=== PATIENT | female | born 1990 | race Caucasian/White ===

== ENCOUNTER 2018-06-06 13:09 | Emergency (ER) | payer BC, SELFPAY ==
[2018-06-06 13:27] VITALS: BP 116/62; PULSE 74; RESP 18; TEMP 37.7; O2SAT 98
--- NOTE | 2018-06-06 14:07 | ED.GENADUL_ITS ---
Discharge Plan Disposition Patient Disposition: HOME Condition: Stable Discharge Details Chief Complaint: Sorethroat Clinical Impression: Pharyngitis Primary Care Provider: Consuelo Abebe ED Provider: Rogelio Valdez Home Meds and New Rx's Prescriptions: Continue [id number] acid [ Multi] 1 EACH tablet 1 ea PO DAILY RF: 0 desonide 15 GM cream 15 gm Topical PRN PRNRF: 0 triamcinolone acetonide 15 GM cream 15 gm Topical PRN PRNRF: 0 clobetasol 15 GM ointment 15 gm Topical PRN PRNRF: 0 Ketoconazole2%cream 2% 1 ea Topical PRN PRNRF: 0 norethindrone (contraceptive) 0.35 MG tablet 1 tab-cap PO DAILY Qty: 90 RF: 4 levothyroxine 100 MCG tablet 50 mcg PO DAILY Qty: 100 RF: 3 Discontinued cetirizine [All Day Allergy (cetirizine)] 10 MG tablet 10 mg PO DAILY PRNRF: 0 docusate sodium [Colace] 100 MG capsule 100 mg PO BID Qty: 60 RF: 3 Discharge Instructions Instructions: Pharyngitis (ED) Additional Instructions: Feel free to return to the emergency department for any new or significant worsening of her symptoms otherwise follow-up with primary care provider as needed for reassessment. You may use breast-feeding safe ficy-ddf-zajamvs cold medication as needed for your symptoms. Stand Alone Forms: Work Release Referrals: Consuelo Abebe, TRIMMING DEPARTMENT BLOCKER [Primary Care Provider] - (As needed for reassessment or if not improving) Discharge Data Discharge Date/Time-TO BE ENTERED AT DEPARTURE: 06/06/18 14:43 Medical Decision Making Patient presenting to the emergency department for chief complaint of sore throat. Patient states that yesterday she started noticing some increasing malaise, sore throat, and nasal congestion. Patient is also presenting with her son who recently received vaccination and has a generalized rash. Patient denies any known fever chills, cough, or other complaints at this time. Physical exam does show some mild tonsillary hypertrophy, erythema, and scant exudates otherwise unremarkable exam. staffing administrator initiated protocol for rapid strep testing. Rapid strep testing is negative so concern for viral etiology. Mother encouraged to take [id number]-[id number] Breast-feeding safe cold medication and follow-up with primary care provider if not improving. After discussion of diagnosis and plan of care patient has no further needs, questions, or concerns and states clear understanding to return to the emergency department for any worsening symptoms. HPI General Mode of arrival: ambulatory . Date/Time Provider Initiated Documentation: 06/06/18 13:32 . Limitations to Documentation: no limitations . Information obtained by: patient and RN notes reviewed . History of Present Illness 27 year old F presents to the emergency department with the chief complaint of sore throat, described as mild, with intensity rated at 2. Quality is described as aching, and is localized to the mouth (Sore throat). Patient started experiencing this day(s) (1) and it has been constant. No relieving factors improve symptom(s), No exacerbating factors reported . Patient notes no other symptoms.. Patient did receive the following treatments prior to arrival, none Related Data Home Medications Medication Instructions Recorded Confirmed [id number] acid 1 ea PO DAILY 10/12/16 01/10/18 [ Multi Tablet] Ketoconazole2%Cream 1 ea TOPICAL PRN PRN 02/03/17 clobetasol 15 gm TOPICAL PRN PRN 02/03/17 01/10/18 desonide 15 gm TOPICAL PRN PRN script 02/03/17 01/10/18 triamcinolone acetonide 15 gm TOPICAL PRN PRN script 02/03/17 01/08/18 norethindrone (contraceptive) 1 tab-cap PO DAILY #90 tab-cap 02/21/18 levothyroxine 50 mcg PO DAILY #100 tab-cap 03/20/18 Previous Rx's Medication Instructions Recorded norethindrone (contraceptive) 1 tab-cap PO DAILY #90 tab-cap 02/21/18 levothyroxine 50 mcg PO DAILY #100 tab-cap 03/20/18 Allergies Allergy/AdvReac Type Severity Reaction Status Date / Time No Known Allergies Allergy Unverified 03/20/18 15:42 General Stated Complaint: Sorethroat MIREYA: 4 Review of Systems Constitutional Denies chills, Denies fever(s) and Reports malaise ENT Reports as per HPI, Denies otalgia, Reports nasal congestion, Reports nasal discharge, Reports sore throat, Denies throat swelling and Denies tongue swelling Cardiovascular Denies chest pain and Denies dyspnea Respiratory Denies cough and Denies dyspnea Integumentary/Breasts Denies rash Allergic/Immunologic Denies throat swelling and Denies tongue swelling PFSH Family History Mother Diabetes Essential hypertension Depression Mental disorder Father Diabetes Essential hypertension CAD (coronary artery disease) Arthritis Depression Hyperlipidemia Mental disorder Myopathy Paternal Uncle Neoplasm Brother Arthritis Social History Smoking/Tobacco Use Status: Never Surgical History section (01/10/18) cardiac surgery for tetrology of fallot (11/10/92) Exam Const General: cooperative, healthy appearing, comfortable, no acute distress and not ill appearing Orientation: alert, awake and oriented x3 Limitations: mental status not altered HENMT Head: normal to inspection Ears: hearing grossly normal bilaterally and TM's normal bilaterally General nose exam: external nose normal Face and sinus: normal facial exam Mouth: oral mucosae normal, lip normal and tongue normal Throat: posterior oropharynx normal, uvula midline and abnormal tonsil bilaterally erythema, exudates and hypertrophy 1+ Neck Neck: normal visual inspection, full ROM, no lymphadenopathy, no meningeal signs , trachea midline and supple Resp Effort & Inspection: normal respiratory effort and able to speak in complete sentences Auscultation: clear to auscultation bilaterally Cardio Rate: regular rate Rhythm: regular rhythm Heart Sounds: S1 normal, S2 normal and murmur systolic Course Vital Signs Temperature 37.7 C H 06/06/18 13:27 Pulse 74 06/06/18 13:27 Respiratory Rate 18 06/06/18 13:27 Blood Pressure 116/62 06/06/18 13:27 Pulse Oximetry 98 06/06/18 13:27 Temperature 37.7 C H 06/06/18 13:27 Temperature Source Temporal Artery Scan 06/06/18 13:27 Pulse 74 06/06/18 13:27 Respiratory Rate 18 06/06/18 13:27 Respiratory Effort 06/06/18 13:29 Blood Pressure 116/62 06/06/18 13:27 Blood Pressure Position Sitting 06/06/18 13:27 Pulse Oximetry 98 06/06/18 13:27 Oxygen Delivery Method Room Air 06/06/18 13:27 Oxygen Flow Rate 0 06/06/18 13:27 Pain Level 2 06/06/18 13:27 Lab/Test Results Lab/Test Results: 06/06/18 14:02 Pharynx Streptococcus Screen (FATOUMATA) - Pending
[2018-06-06 14:41] VITALS: BP 130/80; PULSE 100; RESP 18; TEMP 36.8; O2SAT 99
== END 2018-06-06 14:43 | disposition home or self-care (01) ==
PROVIDERS: Emergency Provider Nurse Practitioner Family; PCP Nurse Practitioner
DX: J02.9 Acute pharyngitis, unspecified (principal)
CPT/HCPCS: 87880; 99282; 87081

== ENCOUNTER 2018-08-22 16:06 | Outpatient (CLI) | payer BC, SELFPAY ==
[2018-08-22 17:17] LABS: TSH (W/Ref FT4) 0.78 uIU/mL (0.358-3.74)
== END 2018-08-22 16:26 ==
PROVIDERS: PCP Nurse Practitioner; Visit Provider Nurse Practitioner
DX: E03.9 Hypothyroidism, unspecified (principal)
CPT/HCPCS: 36415; 84443

== ENCOUNTER 2018-08-29 01:44 | Outpatient (CLI) | payer BC, SELFPAY ==
--- NOTE | 2018-08-29 13:58 | DI.US_ITS ---
SYMPTOM/DIAGNOSIS: LT PELVIC PAIN, R10.2 PELVIC ULTRASOUND: A transabdominal and transvaginal examination was carried out according to the usual protocol. The uterus measures 5.8 cm. in length, 2.1 cm. in height and 3.9 cm. in width with an endometrial stripe thickness of 1.7 mm. A small area of apparent scarring is noted at the c section incision site in the lower uterus. The right ovary measures 2.5 by 1.6 by 2 cm. The left ovary measures 2.4 by 1.4 by 1.3 cm. The kidneys are unremarkable, both measuring 9.3 cm. in length. SUMMARY: Negative pelvic ultrasound.
== END 2018-08-29 02:04 ==
PROVIDERS: PCP Nurse Practitioner; Visit Provider Nurse Practitioner
DX: R10.2 Pelvic and perineal pain (principal)
CPT/HCPCS: 76830; 76856

== ENCOUNTER 2019-08-22 15:40 | Outpatient (CLI) | payer BC, SELFPAY ==
[2019-08-22 18:09] LABS: TSH (W/Ref FT4) 3.14 uIU/mL (0.36-3.74)
== END 2019-08-22 16:00 ==
PROVIDERS: PCP Nurse Practitioner; Visit Provider Nurse Practitioner
DX: E03.9 Hypothyroidism, unspecified (principal)
CPT/HCPCS: 36415; 84443

== ENCOUNTER 2019-11-26 14:52 | Outpatient (CLI) | payer BC, SELFPAY | END 2019-11-26 15:12 | PROVIDERS: PCP Nurse Practitioner; Visit Provider Obstetrics & Gynecology | DX: O20.0 Threatened abortion (principal) | CPT/HCPCS: 36415; 84702 ==

== ENCOUNTER 2019-11-28 12:11 | Outpatient (REF) | payer BC, SELFPAY | END 2019-11-28 12:31 | LOC: LBN 12:11 | PROVIDERS: PCP Nurse Practitioner; Visit Provider Obstetrics & Gynecology | DX: O20.0 Threatened abortion (principal) | CPT/HCPCS: 84702 ==

== ENCOUNTER 2019-12-26 14:45 | Outpatient (REF) | payer BC, SELFPAY ==
[2019-12-26 15:49] LABS: *AMPHETAMINES SCREEN URINE Negative (Negative); *BARBITURATES SCREEN URINE Negative (Negative); *BENZODIAZEPINES SCREEN URINE Negative (Negative); Cannabinoids THC Negative (Negative); Cocaine Screen,Urine Negative (Negative); METHADONE URINE SCREEN Negative (Negative); OPIATES URINE SCREEN Negative (Negative)
[2019-12-26 15:57] LABS: Tricyclic Antidepressants Negative (Negative)
[2019-12-27 14:46] LABS: Chlamydia Result Negative (Negative); GC Result Negative (Negative)
[2020-01-02 07:15] LABS: Buprenorphine Negative; Norbuprenorphine Negative
== END 2019-12-26 15:05 ==
LOC: LBN 14:45
PROVIDERS: PCP Nurse Practitioner; Visit Provider Advanced Practice Midwife
DX: Z34.91 Encounter for supervision of normal pregnancy, unspecified, first trimester (principal); Z11.3 Encounter for screening for infections with a predominantly sexual mode of transmission
CPT/HCPCS: 80307; 87491; 87591; 87086

== ENCOUNTER 2019-12-27 12:02 | Outpatient (REF) | payer BC, SELFPAY ==
[2019-12-27 15:31] LABS: Abs Immature Grans 0.02 k/cumm (0.0-0.09); Absolute Basophil Count 0.01 k/cumm (0.0-0.2); Absolute Lymphocyte Count 1.49 k/cumm (1.2-3.4); Absolute Monocyte Count 0.54 k/cumm (0.11-0.7); Absolute Neutrophil Count 3.89 k/cumm (1.2-6.7); Basophils % 0.2; Eosinophils % 7.8; HCT 39.5 % (36.0-46.0); HGB 13.1 g/dL (12.0-15.5); Immature Grans % 0.3 %; Lymphocytes % 23.1; Mean Corp. HGB Concentration 33.2 g/dL (32.0-36.0); Mean Corpuscular Hemoglobin 28.1 pg (27.0-33.0); Mean Corpuscular Volume 84.8 fL (80-95); Mean Platelet Volume 12.1 fL (8.0-11.0); Monocytes % 8.4; Neutrophils % 60.2; Platelet Count 238 x1000/uL (130-400); RBC 4.66 m/cumm (4.00-5.20); RBC Distribution Width 14.2 % (11.7-14.6); White Blood Cell Count 6.45 k/cumm (4.4-10.8)
[2019-12-27 15:39] LABS: TSH (W/Ref FT4) 1.34 uIU/mL (0.36-3.74)
[2019-12-30 11:10] LABS: Rubella IgG Ab (UVM) Positive (See Note); Varicella IgG Antibody Positive (See Note)
[2019-12-30 11:37] LABS: Hepatitis B Surface Ag Negative (Negative); Hepatitis C Ab w Rflx HCV PCR Negative (Negative)
[2019-12-30 11:38] LABS: HIV-1/2 Ag & Ab Screen Negative (Negative)
[2020-01-01 09:30] LABS: Syphilis Total Ab w/Reflex Nonreactive (Nonreactive)
[2020-01-07 00:47] LABS: Specimen WB Whole Blood
== END 2019-12-27 12:22 ==
LOC: LBN 12:02
PROVIDERS: PCP Nurse Practitioner; Visit Provider Advanced Practice Midwife
DX: Z34.91 Encounter for supervision of normal pregnancy, unspecified, first trimester (principal); Z36.89 Encounter for other specified antenatal screening
CPT/HCPCS: 81329; 86787; 86803; 86850; 86900; 86901; 87340; 87389; 84443; 85025; 86762; 86780

== ENCOUNTER 2020-05-05 03:33 | Outpatient (CLI) | payer BC, SELFPAY ==
[2020-05-05 15:19] LABS: HCT 35.5 % (36.0-46.0); HGB 11.6 g/dL (11.2-15.7); MCH 29.7 pg (27.0-33.0); MCHC 32.7 % (32.0-36.0); MPV 10.9 fL (8.0-11.0); Platelet Count 222 10^3/uL (130-400); RDW 13.1 % (11.7-14.6)
[2020-05-05 15:29] LABS: Glucose,1 Hr (Glucola) 113 mg/dL (80-140)
== END 2020-05-05 03:53 ==
PROVIDERS: PCP Nurse Practitioner; Visit Provider Obstetrics & Gynecology
DX: Z34.93 Encounter for supervision of normal pregnancy, unspecified, third trimester (principal); Z3A.28 28 weeks gestation of pregnancy
CPT/HCPCS: 36415; 82950; 85027

== ENCOUNTER 2020-06-02 01:17 | Outpatient (CLI) | payer BC, SELFPAY ==
--- NOTE | 2020-06-02 08:00 | DI.US_ITS ---
EXAM: US OB IQRA WEIGHT CLINICAL HISTORY: S<D,O26.843 TECHNIQUE: Ultrasound performed using standard protocol. COMPARISON: US US PELVIS TRANSVAGINAL from 08/29/2018 FINDINGS: Ob ultrasound was performed utilizing 3rd trimester protocol. biometry is consistent with gest ational age of 32 weeks 6 days and an EDC of July 22. Estimated weight is 1995 grams which is at the 39th percentile for predicted gestational age. Placenta is fundal and anterior with no placenta previa. Visually there is a normal quantity of amniotic fluid and the IQRA is 13. heart rate 160 BPM, fetus is in cephalic presentation. IMPRESSION: DATA REPOSITORY:
== END 2020-06-02 01:37 ==
PROVIDERS: PCP Nurse Practitioner; Visit Provider Advanced Practice Midwife
DX: O26.843 Uterine size-date discrepancy, third trimester (principal)
CPT/HCPCS: 76816

== ENCOUNTER 2020-07-06 16:05 | Outpatient (CLI) | payer BC, SELFPAY ==
[2020-07-06 17:09] LABS: *AMPHETAMINES SCREEN URINE Negative (Negative); *BARBITURATES SCREEN URINE Negative (Negative); *BENZODIAZEPINES SCREEN URINE Negative (Negative); Cannabinoids THC Negative (Negative); Cocaine Screen,Urine Negative (Negative); METHADONE URINE SCREEN Negative (Negative); OPIATES URINE SCREEN Negative (Negative)
[2020-07-06 17:12] LABS: Tricyclic Antidepressants Negative (Negative)
[2020-07-06 17:18] LABS: TSH (W/Ref FT4) 2.82 uIU/mL (0.36-3.74)
[2020-07-14 14:50] LABS: Buprenorphine Negative
== END 2020-07-06 16:25 ==
PROVIDERS: PCP Nurse Practitioner; Visit Provider Advanced Practice Midwife
DX: Z34.93 Encounter for supervision of normal pregnancy, unspecified, third trimester (principal); Z36.85 Encounter for antenatal screening for Streptococcus B; E03.9 Hypothyroidism, unspecified
CPT/HCPCS: 80307; 84443; 87081

== ENCOUNTER 2020-07-24 09:34 | Inpatient (IN) | payer BC, SELFPAY ==
--- NOTE | 2020-07-24 11:58 | W.PM.OBHPL1 ---
Date of service: 07/24/20 Time of Service: 11:58 Assessment and Plan Assessment and plan (1) Uterine scar from previous delivery: Status: Acute (2) membranes, spontaneous rupture: Status: Acute Assessment and plan: A: , low risk , Prev LT C/S for breech, planning for TOLAC/ Maternal hx repaired TOF; echo done @ [facility] = nml SROM clear confirmed, latent phase labor GBS negative, Rh+, Rubella and Varicella Immune Low risk for SD and PPH P: Admit to BC, CBC, T&S, COVID swab protocol: IVF access, clear liquids,continuous EFM when in active labor Dr. Donaldson notified of pt status, OR/A&P MECHANIC to be notified of admission Per policy: OR for standby when labor becomes active Expectant management at this time (3) 40 weeks gestation of : Status: Acute OB-HPI Labor/Delivery History of Present Illness Reason for Visit: SUSPECTED SROM 0850 Chief Complaint: Suspected Rupture of Membranes , Associated Signs and Symptoms of Suspected ROM: gush of clear fluids at 0850 this morning, contractions beginning around 1030. EMERALD Calculator Estimated Delivery Date Method Current WG Current Estimate 07/24/20 LMP (Certain) 40w 0d Other Estimates 07/24/20 Ultrasound #1 40w 0d History of Present Expected Delivery Route/Plan Desires - CNM FOB/ - Wai Jones BB yes to circ Plans IOL at 41 wks @ [facility] for TOLAC, booked for 08/02/20 GBS neg Specific Issues/Plan 1. Prior section and desires a trial of labor 1a. Consult at MFM at [facility] - Patient is considering transfer for induction of labor at [facility] if no spontaneous labor 1b. Had consent & counseling with 05/05/20 2. Subchorionic hemorrhage with vaginal bleeding in first trimester. (Rh+) 2a. scant brown discharge until 01/17. No bleeding since. 3. H/O tetralogy of fallot w/ repair & will need [facility] anatomy scan and echo referral placed. al 3a. Normal Echo at [facility] 4. [place] drawn 12/26 wants gender identified yet not made known to her. al 4a. [place] result low prob x3 4b. SMA neg al 4c. AFP 03/19/20 declination signed. al Review of Systems All systems reviewed & are unremarkable except as noted in HPI and below Constitutional Constitutional: Reports as per HPI Cardiovascular Cardiovascular: Reports system reviewed and no additional complaints, except as documented Respiratory Respiratory: Reports system reviewed and no additional complaints, except as documented Gastrointestinal Gastrointestinal: Reports system reviewed and no additional complaints, except as documented Genitourinary Genitourinary: Reports system reviewed and no additional complaints, except as documented and Reports as per HPI Musculoskeletal Musculoskeletal: Reports system reviewed and no additional complaints, except as documented Integumentary/Breasts Skin/Breast: Reports system reviewed and no additional complaints, except as documented Neurologic Neurologic: Reports system reviewed and no additional complaints, except as documented [facility] Medical History (Updated 07/24/20 @ 12:08 by Ann Fowler) Encounter for related examination in first trimester Hypothyroidism Ocular migraine x1 Surgical History (Updated 04/21/20 @ 10:46 by Hollie Portillo RN) cardiac surgery for tetrology of fallot (11/10/92) [facility] section (01/10/18) LTCS. Rafi Montes. Breech s/p unsuccessful ECV. Family History Mother Diabetes Type II Essential hypertension Depression Mental disorder Depression Father Diabetes Essential hypertension CAD (coronary artery disease) Arthritis Depression Hyperlipidemia Mental disorder Depression Myopathy Paternal Uncle Neoplasm Lung Brother Arthritis Social History (Updated 12/26/19 @ 13:10 by Mishel Lr CNM) Smoking/Tobacco Use Status: Never Smoking risk assessment performed?: Yes Alcohol Intake: current Alcohol Intake frequency: holidays/special occasions only Drug use: Never Number of Children: 1 current occupation: [employer] Do you feel safe at home: Yes Do you feel safe in your relationship?: Yes Female Reproductive History Menstrual Age of Menarche: 13 control method: none History History 3 Para 1 Hx # Term Pregnancies 1 Multiple births 0 Hx # Pregnancies 0 Ectopic pregnancies 0 AB induced 0 Hx Number of Living Children 1 AB spontaneous 1 Past Pregnancies Del. Date GA/Weeks # Outcome Route Wgt Sex Labor Lgth Anesthesia Location Prov Complic 01/10/18 39 No Successful 7 lb 3 oz Male [facility] donaldson Delivery Date: 01/10/18 failed ecv for breech. LEMISHEL ARROYO Meds Home Medications and Allergies Home Medications Medication Instructions Recorded Confirmed Type Ketoconazole2%Cream 1 ea TOPICAL PRN PRN 02/03/17 07/23/20 History clobetasol 15 gm TOPICAL PRN PRN 02/03/17 07/23/20 History desonide 15 gm TOPICAL PRN PRN script 02/03/17 07/23/20 History prenat.vits,shayna,[id number]-[id number] 1 tab PO DAILY 11/28/19 07/23/20 History docusate sodium 100 mg capsule 100 mg PO DAILY PRN 03/19/20 07/23/20 History calcium carbonate 500 mg calcium 1,000 mg PO DAILY PRN tab 06/02/20 07/23/20 History (1,250 mg) chewable tablet famotidine 20 mg tablet 20 mg PO DAILY PRN 06/02/20 07/23/20 History triamcinolone acetonide 0.1 % 1 applic TP BID PRN 06/02/20 07/23/20 History topical ointment levothyroxine 100 mcg tablet 50 mcg PO DAILY #100 tab-cap 06/25/20 07/23/20 Rx Allergies Allergy/AdvReac Type Severity Reaction Status Date / Time No Known Allergies Allergy Verified 07/23/20 14:24 Exam Physical Exam Vital Signs Reviewed: Yes Constitutional Constitutional: no acute distress Detailed Labor and Delivery Exam Dilation: 2 Effacement (%): 90 station: -1 Cervix position: mid Consistency: medium DELEON Score(Cervical Ripeness Score): 8 Amniotic Membrane Status: Ruptured Rupture Method: Spontaneous Amniotic Fluid: Clear Pooling: Positive Nitrazine: Positive Ferning: Present Monitor Mode: External Contraction Intensity: Mild Fetus A Heart Rate Baseline: 135 Monitor Accelerations: 15 X 15 Monitor Decelerations: None Variability: Moderate (6-25 BPM) Presentation: Vertex Categories: Category I Est. Weight: 7 lb 0.877 oz Est. Weight: 3200 gms Date of Membrane Rupture: 07/24/20 Time of Membrane Rupture: 12:23 HEENT Exam HEENT Exam: Normal Neck Exam Neck Exam: Normal Chest/Brest/Axilla Exam Chest Exam: Normal Breast Exam Breast Exam: Normal Respiratory Exam Respiratory Exam: Normal Cardiovascular Exam Cardiovascular Exam: Normal Abdominal Exam Abdominal Exam: Normal (Gravid, soft) Rectal Exam Rectal Exam: Not Done Exam Exam: Normal Extremities Exam Extremities Exam: Normal Back/Spine/Pelvis Exam Back Exam: Normal Skin Exam Skin Exam: Normal Neurological Exam Neurological Exam: Normal Psychiatric Exam Psychiatric Exam: Normal Results Results Group Beta Strep: Negative Blood Type: A+ Rubella Status: Immune Varicella Immunity: Immune Risk Assessment Risk for Shoulder Dystocia Historical/Initial OB: NEGATIVE FOR: Pelvic Abnormality, Pre- BMI>30, Previous Shoulder Dystocia or Previous Macrosomia 40 Weeks: NEGATIVE FOR: EFW> 4500 gms, Maternal Weight Gain >40lb or Post Dates Increased Risk?: No Delivery Plan @ 36wks: spont labor, Risk for Pre-Eclampsia Daily Dose ASA Indicated: No Date Initiated/Initials: 12/26/19 al Yes, if one or more: NEGATIVE FOR: Hx Pre-E/Gest HTN, Chronic HTN, Multiple Gestation, Pre-gestational DM, Renal Disease, Systemic Lupus or APA Syndrome Yes, if 2 or more: NEGATIVE FOR: Nulliparity, Age>= 35 yrs, >10yr btwn pregnancies, BMI>30, ethinicty, Mother/Sister w/ Pre-E or Previous IUGR Risk for Post- Hemorrhage Initial: POSITIVE FOR: Anticoagulation; NEGATIVE FOR: Multiple Gestation, Previous PPH, Known Clotting Deficiency or Grand Multiparity At Risk?: No Risks Reviewed Risks Reviewed Upon Admission: Yes
[2020-07-24 12:06] VITALS: BP 122/70; PULSE 75; RESP 16; TEMP 36.9
[2020-07-24 12:18] VITALS: TEMP 36.9
[2020-07-24 12:23] LABS: HCT 36.8 % (36.0-46.0); HGB 12.2 g/dL (11.2-15.7); MCH 29.7 pg (27.0-33.0); MCHC 33.2 % (32.0-36.0); MCV 89.5 fL (80-95); MPV 12.1 fL (8.0-11.0); Platelet Count 183 10^3/uL (130-400); RBC 4.11 10^6/uL (3.93-5.22); RDW 12.8 % (11.7-14.6); RDW-SD 41.9 fL; WBC 8.67 10^3/uL (4.4-10.8)
[2020-07-24] MEDS: Normal Saline Flush 10 ML SYR IVP (13:15)
--- NOTE | 2020-07-24 14:48 | DSE_ITS ---
Date of service: 07/24/20 Time of Service: 14:48 DS: Diagnosis Discharge Diagnosis (1) Uterine scar from previous delivery: Status: Acute (2) membranes, spontaneous rupture: Status: Acute (3) 40 weeks gestation of : Status: Acute (4) H/O tetralogy of Fallot repair: Status: Chronic Discharge Plan Disposition Patient Disposition: [facility] Condition: Good Discharge Details Reason For Visit: SUSPECTED SROM 0850 Admit Date/Time: 07/24/20 11:57 Admit Provider: Ann Fowler Attending Provider: Ann Fowler Primary Care Provider: Consuelo Abebe [facility] Hospital Course Hospital Course: Patient is a 29-year-old female with an estimated date of delivery of 07/24/2020 who has been followed by the M service at [facility] since early in her first trimester. Patient has planned a vaginal after delivery and underwent spontaneous rupture membranes at approximately 830 this morning. She is currently 2 cm dilated with occasional contractions. And clear amniotic fluid and category 1 heart rate tracing. She has a history of a repaired tetralogy of Fallot and had received counseling for a trial of labor at [facility] department. A echocardiogram was normal. Patient's most recent cardiac evaluation was in 2018 and she was given permission to deliver at [facility]. Reviewed the patient's past medical history with the anesthesia team providing care today who reviewed the patient's chart and felt that in the event of a unforeseen cardiac event they would not be able to provide adequate care for the patient because of the resources available [place] [facility] For this reason I reached out to [facility] service and they have agreed to accept the patient in transfer since since she is currently stable and I believe safe to travel. The patient has been advised regarding the recommendations from the anesthesia providers and has excepted transfer. Home Meds and New Rx's Prescriptions: No Action prenat.vits,shayna,[id number]-qlfrc Tablet 1 tab PO DAILY RF: 0 docusate sodium [Colace] 100 mg capsule 100 mg PO DAILY PRNRF: 0 calcium carbonate 500 mg calcium (1,250 mg) tablet,chewable 1,000 mg PO DAILY PRNRF: 0 famotidine 20 mg tablet 20 mg PO DAILY PRNRF: 0 desonide 15 GM cream 15 gm Topical PRN PRNRF: 0 clobetasol 15 GM ointment 15 gm Topical PRN PRNRF: 0 Ketoconazole2%cream 2% 1 ea Topical PRN PRNRF: 0 triamcinolone acetonide 0.1 % ointment 1 applic TP BID PRNRF: 0 levothyroxine 100 mcg tablet 50 mcg PO DAILY Qty: 100 RF: 0 Discharge Instructions Additional Instructions: You will be transported to [facility] by an ambulance and will be cared for by the maternal- medicine service at [facility]. The plan is to have you continue your trial of labor and have a ultimately successful . Activity:: Activity as Tolerated Diet:: As Tolerated Discharge Orders Discharge Orders: Discharge Order (Routine); Ordered 07/24/20 Ordered By: Gogo Donaldson DS: Summary Status at Discharge Functional status at discharge: independent ambulation Overall status at discharge: patient is back to baseline Mental Status: mental status grossly normal Speech and Movement: speech and movement normal Mood: congruent mood Affect: normal affect Exam Const General: no acute distress (Tearful about having to leave [facility] for delivery at [facility]) Nutritional Appearance: average body habitus Orientation: alert, awake and oriented x3 Neck Neck: normal visual inspection Thyroid: thyroid normal Resp Effort & Inspection: normal respiratory effort Auscultation: clear to auscultation bilaterally Cardio Rate: regular rate Rhythm: regular rhythm GI Inspection: normal to inspection Palpation: soft (Gravid) General: deferred (SVE was performed at the time of admission. ) Skin General skin exam: no rashes or lesions noted Extrem General: normal to inspection Psych Appearance: grossly normal Mental Status: mental status grossly normal Speech and Movement: speech and movement normal Mood: congruent mood Affect: normal affect DS: Data Vitals/I&O Vitals and I&O: Vital Signs Temperature 98.4 F 07/24/20 12:18 Pulse 75 07/24/20 12:06 Pulse Rhythm Regular 07/24/20 12:18 Respiratory Rate 16 07/24/20 12:06 Blood Pressure 122/70 07/24/20 12:06 Blood Pressure Mean 87 07/24/20 12:06 Oxygen Delivery Method Room Air 07/24/20 12:18 Oxygen Flow Rate 0 07/24/20 12:18 Data Completed and Pending Labs on day of discharge: Labs from last 24 hours 07/24/20 07/24/20 07/24/20 12:47 12:11 12:11 WBC 8.67 RBC 4.11 Hgb 12.2 Hct 36.8 MCV 89.5 MCH 29.7 MCHC 33.2 RDW 12.8 Plt Count 183 MPV 12.1 H SARS-CoV-2 (PCR) Pending Nasopharyn COVID-19 PCR Pending Ref Test Perform Site Pending Patient ABO/Rh A Positive Antibody Screen Negative PFSH Medical History (Updated 07/24/20 @ 12:08 by Ann Fowler) Encounter for related examination in first trimester Hypothyroidism Ocular migraine x1 Surgical History (Updated 04/21/20 @ 10:46 by Hollie Portillo RN) cardiac surgery for tetrology of fallot (11/10/92) [facility] section (01/10/18) [facility]. Rafi Montes. Breech s/p unsuccessful ECV. Family History Mother Diabetes Type II Essential hypertension Depression Mental disorder Depression Father Diabetes Essential hypertension CAD (coronary artery disease) Arthritis Depression Hyperlipidemia Mental disorder Depression Myopathy Paternal Uncle Neoplasm Lung Brother Arthritis Social History (Updated 12/26/19 @ 13:10 by Mishel Machuca CNM) Smoking/Tobacco Use Status: Never Smoking risk assessment performed?: Yes Alcohol Intake: current Alcohol Intake frequency: holidays/special occasions only Drug use: Never Number of Children: 1 current occupation: [employer] Do you feel safe at home: Yes Do you feel safe in your relationship?: Yes Female Reproductive History Menstrual Age of Menarche: 13 control method: none History History 3 Para 1 Hx # Term Pregnancies 1 Multiple births 0 Hx # Pregnancies 0 Ectopic pregnancies 0 AB induced 0 Hx Number of Living Children 1 AB spontaneous 1 Past Pregnancies Del. Date GA/Weeks # Outcome Route Wgt Sex Labor Lgth Anesthes ia Location Prov Complic 01/10/18 39 No Successful 7 lb 3 oz Male [facility] c/s [facility] dr[facility] donaldson Delivery Date: 01/10/18 failed ecv for breech. MISHEL MACHUCA
[2020-07-24] MEDS: Lactated Ringers 1,000 ML 125 ML IV (15:14)
--- NOTE | 2020-07-24 16:32 | PGE_ITS ---
Date of service: 07/24/20 Time of Service: 15:32 Assessment and Plan Assessment and plan (1) membranes, spontaneous rupture: Status: Acute Assessment and plan: A: Unable to offer intrapartum services d/t hx TOF repair per anesthesia dept P: [facility] has accepted transfer Pt discharged, ambulance transport with RN attending Objective Vital Signs Reviewed: Yes Objective Narrative Objective Narrative: category 1 tracing latent phase labor, not active yet irregular mild contractions, pt coping well Dr. Helm in to speak with pt concerning hx TOF Results Hemoglobin/Hematocrit: Hgb 12.2 g/dL (11.2-15.7) 07/24/20 12:11 Hct 36.8 % (36.0-46.0) 07/24/20 12:11 Abnormal Lab Findings: Abnormal Labs 07/24/20 12:11 MPV 12.1 H
[2020-07-25 07:46] LABS: COVID-19 RT-PCR UVMMC Result Negative (Negative)
== END 2020-07-24 15:45 | disposition short-term general hospital (02) | DRG 833 ==
LOC: OBS 11:42
PROVIDERS: Admitting Provider Advanced Practice Midwife; PCP Nurse Practitioner; Visit Provider Advanced Practice Midwife
DX: O26.893 Other specified pregnancy related conditions, third trimester (principal); O34.219 Maternal care for unspecified type scar from previous cesarean delivery; Z98.890 Other specified postprocedural states; Z3A.40 40 weeks gestation of pregnancy; E03.9 Hypothyroidism, unspecified; G43.809 Other migraine, not intractable, without status migrainosus; O99.283 Endocrine, nutritional and metabolic diseases complicating pregnancy, third trimester; O99.353 Diseases of the nervous system complicating pregnancy, third trimester
CPT/HCPCS: 36415; 85027; 86850; 86900; 86901; 99239; U0003

== ENCOUNTER 2020-08-19 14:24 | Emergency (ER) | payer BC, SELFPAY ==
[2020-08-19 14:28] VITALS: BP 120/83; PULSE 81; RESP 16; TEMP 36.4; O2SAT 98
--- NOTE | 2020-08-19 14:40 | ED.GENADUL_ITS ---
Discharge Plan Disposition Patient Disposition: HOME Condition: Stable Discharge Details Clinical Impression: Nausea vomiting and diarrhea Primary Care Provider: Consuelo Abebe ED Provider: Beatrice Gallego Home Meds and New Rx's Prescriptions: New ondansetron 4 mg tablet,disintegrating 4 mg PO Q8H PRN5 Days Qty: 15 RF: 0 Continued prenat.vits,shayna,[id number] Tablet 1 tab PO DAILY RF: 0 levothyroxine 100 mcg tablet 50 mcg PO DAILY RF: 0 docusate sodium [Colace] 100 mg capsule 100 mg PO DAILY PRNRF: 0 desonide 15 GM cream 15 gm Topical PRN PRNRF: 0 clobetasol 15 GM ointment 15 gm Topical PRN PRNRF: 0 Ketoconazole2%cream 2% 1 ea Topical PRN PRNRF: 0 triamcinolone acetonide 0.1 % ointment 1 applic TP BID PRNRF: 0 Discharge Instructions Instructions: Acute Nausea and Vomiting (ED) Additional Instructions: Follow up with primary care provider in 3-5 days. Return to ED sooner if any worsening or concerns. Increase oral fluids. Please take Tylenol or Ibuprofen with food every 4-6 hours as needed for pain and swelling. If you continue to have diarrhea for the next 24 to 48 hours you may try taking an Imodium [id number]. I am also getting sending home with some nausea medication prescription. Please return for any worsening abdominal pain, fever, chills or any concerns. Referrals: Consuelo Abebe, NETEZZA ARCHITECT [Primary Care Provider] - Discharge Data Discharge Date/Time-TO BE ENTERED AT DEPARTURE: 08/19/20 15:45 Medical Decision Making 29-year-old female presents to the ER with chief complaint of nausea vomiting diarrhea. She is 3 and half weeks status post vaginal delivery of 40-week gestation baby. She is breast-feeding. She states on Monday morning she had similar episode which lasted approximately 24 hours and then resolved. She began this morning again with vomiting, lower abdominal pain, and diarrhea. Associated with mild chills and dysuria, no fever. She denies any sick contacts or any questionable food ingestion she denies any recent travel. She is denying any other complaints at this time. She denies any significant vaginal bleeding or notable vaginal discharge. She reports some continued spotting. Work-up ordered including CBC, CMP, urinalysis, IV normal saline 1 L and Zofran 4 mg IV. Lab work is largely within normal limits there is large blood noted in her urinalysis with some trace leukocytes greater than 50 RBCs culture is pending at this time. Due to recent vaginal delivery with continued vaginal spotting I am not overly concerned about the blood in her urine. We will send patient home with prescription for Zofran and instructed on home care. I did discuss taking some Imodium [id number] if diarrhea continues. I also discussed close follow-up with her COMPENSATION ADMINISTRATOR or PCP. She verbalized unders tanding. Discussed strict return instructions. Patient was hemodynamically stable throughout stay. This text was generated using [employer] dictation system, please disregard any oddities of phrase or misspellings. HPI General Mode of arrival: ambulatory . Date/Time Provider Initiated Documentation: 08/19/20 14:25 . Limitations to Documentation: no limitations . Information obtained by: patient . HPI Narrative: 29-year-old female presents to the ER with chief complaint of nausea vomiting diarrhea. She is 3 and half weeks status post vaginal delivery of 40-week gestation baby. She is breast-feeding. She states on Monday morning she had similar episode which lasted approximately 24 hours and then resolved. She began this morning again with vomiting, lower abdominal pain, and diarrhea. Associated with mild chills and dysuria, no fever. She denies any sick contacts or any questionable food ingestion she denies any recent travel. She is denying any other complaints at this time. She denies any significant vaginal bleeding or notable vaginal discharge. She reports some continued spotting. Related Data Home Medications Medication Instructions Recorded Confirmed Ketoconazole2%Cream 1 ea TOPICAL PRN PRN 02/03/17 08/19/20 clobetasol 15 gm TOPICAL PRN PRN 02/03/17 08/19/20 desonide 15 gm TOPICAL PRN PRN script 02/03/17 08/19/20 prenat.vits,shayna,[id number] 1 tab PO DAILY 11/28/19 08/19/20 docusate sodium 100 mg capsule 100 mg PO DAILY PRN 03/19/20 08/19/20 triamcinolone acetonide 0.1 % 1 applic TP BID PRN 06/02/20 08/19/20 topical ointment levothyroxine 100 mcg tablet 50 mcg PO DAILY tab-cap 08/06/20 08/19/20 ondansetron 4 mg PO Q8H PRN 5 Days #15 tab 08/19/20 Previous Rx's Medication Instructions Recorded ondansetron 4 mg PO Q8H PRN 5 Days #15 tab 08/19/20 Allergies Allergy/AdvReac Type Severity Reaction Status Date / Time No Known Allergies Allergy Verified 08/19/20 14:32 General Stated Complaint: Nausea/Vomit/Diar MIREYA: 3 Review of Systems Narrative: Constitutional: Negative for weight loss, alert and oriented, well groomed, normal body habitus, appears comfortable. HEENT: Denies trauma, headaches, blurry vision, nasal discharge, sore throat, trouble swallowing. Chest: Denies chest pain, palpitations, irregular rhythm, hypertension. Respiratory: Denies Shortness of breath, cough, hemoptysis. GI: Denies constipation. Positive lower bilateral abdominal pain, nausea, vomiting. : Denies dysuria, hematuria, flank pain, rectal bleeding. Neuro: Denies dizziness, blurry vision, weakness, syncope, headache or facial numbness. Hematologic: Denies easy bruising, intolerance to heat or cold, hair loss. [facility] Medical History (Updated 08/19/20 @ 15:28 by Beatrice Gallego) 40 weeks gestation of Encounter for related examination in first trimester membranes, spontaneous rupture Hypothyroid in , antepartum (11/22/17) Hypothyroidism Ocular migraine x1 Previous surgery to uterus affecting current in third trimester Size of fetus inconsistent with dates in first trimester Size of fetus inconsistent with dates in third trimester Threatened Surgical History (Updated 04/21/20 @ 10:46 by Hollie Portillo RN) cardiac surgery for tetrology of fallot (11/10/92) [facility] section (01/10/18) LTCS. Rafi Montes. Breech s/p unsuccessful ECV. Family History Mother Diabetes Type II Essential hypertension Depression Mental disorder Depression Father Diabetes Essential hypertension CAD (coronary artery disease) Arthritis Depression Hyperlipidemia Mental disorder Depression Myopathy Paternal Uncle Neoplasm Lung Brother Arthritis Social History (Updated 12/26/19 @ 13:10 by Mishel Machuca CNM) Smoking/Tobacco Use Status: Never Smoking risk assessment performed?: Yes Alcohol Intake: current Alcohol Intake frequency: holidays/special occasions only Drug use: Never Number of Children: 1 current occupation: [employer] Do you feel safe at home: Yes Do you feel safe in your relationship?: Yes Female Reproductive History Menstrual Age of Menarche: 13 control method: none History History 3 Para 2 Hx # Term Pregnancies 2 Multiple births 0 Hx # Pregnancies 0 Ectopic pregnancies 0 AB induced 0 Hx Number of Living Children 2 AB spontaneous 1 Past Pregnancies Del. Date GA/Weeks # Outcome Route Wgt Sex Labor Lgth Anesthes ia Location Prov Complic 01/10/18 39 No Successful 3260.195 g Male [facility], [facility] c/s [facility] donaldson 07/24/20 40 No Successful vaginal 2993.71 g Male [facility] Delivery Date: 01/10/18 failed ecv for breech. MISHEL MACHUCA Delivery Date: 07/24/20 with vacuum assist due to NRFHT; Nichole Ybarra Exam Narrative Exam Narrative: Constitutional: Alert and oriented x3. Appears stated age. Normal body habitus. Head: Normocephalic, no trauma. Eyes: Pupils PERRLA, Red reflex noted, EOM's intact. Eyelids symmetrical without lesions, discharge, or swelling. ENT: Bilateral TM's WNL, External ear normal to inspection, no mastoid TTP, swelling, or erythema, Nasal turbinates WNL, no nasal discharge. Normal dentition, Posterior pharynx WNL, no exudate. Chest: RRR, Normal S1, S2, distal pulses intact. Resp: Lungs clear to auscultation bilaterally, no wheezes, rales, or rhonchi. Abdomen: Soft, nondistended, slightly tender to palpation bilateral right and left lower quadrants. Musculoskeletal: Normal gait, 5/5 strength to all four extremities. Skin: No suspicious rashes or lesions. Capillary refill less than 2 sec. Neurologic: Cranial nerves II-XII intact. Alert and oriented x 3. DTR's intact. Hematologic/Lymphatic: No ecchymosis, no lymphadenopathy. Course Vital Signs Vital signs: Vital Signs Temperature 36.4 C L 08/19/20 14:28 Pulse 81 08/19/20 14:28 Respiratory Rate 16 08/19/20 14:28 Blood Pressure 120/83 08/19/20 14:28 Pulse Oximetry 98 08/19/20 14:28 Temperature 36.4 C L 08/19/20 14:28 Temperature Source Skin 08/19/20 14:28 Pulse 81 08/19/20 14:28 Respiratory Rate 16 08/19/20 14:28 Respiratory Effort 08/19/20 14:34 Blood Pressure 120/83 08/19/20 14:28 Blood Pressure Position Sitting 08/19/20 14:28 Pulse Oximetry 98 08/19/20 14:28 Oxygen Delivery Method Room Air 08/19/20 14:28 Oxygen Flow Rate 0 08/19/20 14:28 Pain Level 6 08/19/20 14:28 Comment 08/19/20 14:28
[2020-08-19 14:55] LABS: Bilirubin Negative (Negative); Blood Large (Negative); Clarity Sl Cloudy (Clear); Glucose Negative (Negative); Ketones Negative (Negative); Leukocyte Esterase Trace (Negative); Nitrite Negative (Negative); Specific Gravity 1.025 (1.005-1.025); Urobilinogen 0.2 EU/dL (Up TO 0.2); pH 5.5 (5-8)
[2020-08-19 15:03] LABS: Abs Immature Grans 0.04 10^3/uL (0.0-0.06); Absolute Basophil Count 0.03 10^3/uL (0.0-0.2); Absolute Eosinophil Count 1.12 10^3/uL (0.0-0.7); Absolute Lymphocyte Count 1.85 10^3/uL (1.2-3.4); Absolute Monocyte Count 0.73 10^3/uL (0.1-0.8); Basophils % 0.3; Eosinophils % 9.9; HCT 46.2 % (36.0-46.0); Immature Grans % 0.4; Lymphocytes % 16.3; MCH 29.5 pg (27.0-33.0); MCHC 32.5 % (32.0-36.0); MCV 90.9 fL (80-95); MPV 10.6 fL (8.0-11.0); Monocytes % 6.4; Neutrophils % 66.7; Nucleated RBC 0 %; Platelet Count 331 10^3/uL (130-400); RBC 5.08 10^6/uL (3.93-5.22); RDW 12.1 % (11.7-14.6); RDW-SD 40.5 fL; WBC 11.35 10^3/uL (4.4-10.8)
[2020-08-19 15:05] LABS: Absolute Neutrophil Count 7.57 10^3/uL (1.2-6.7)
[2020-08-19] MEDS: Normal Saline 1,000 ML 1000 ML IV (15:08)
[2020-08-19] MEDS: Normal Saline Flush 10 ML SYR IVP (15:08)
[2020-08-19] MEDS: Ondansetron 4 MG/2 ML VIAL IVP (15:08)
[2020-08-19 15:12] LABS: Bacteria Rare HPF (Negative); C & S Indicated? Yes; Casts Negative LPF (Negative); Crystals Negative HPF (Negative); Epithelial Cells Few HPF (Negative); Mucus Negative (Negative); Other Cells Rare Renal (Negative); RBC >50 HPF (0-2); WBC 0-2 HPF (0-5)
[2020-08-19 15:17] LABS: ALT 45 U/L (14-59); AST 27 U/L (15-37); Albumin 3.7 g/dL (3.4-5.0); Alkaline Phosphatase 87 U/L (46-116); Anion Gap 10.4 mmol/L (3-11); BUN 18 mg/dL (7-18); Bilirubin, Total 0.5 mg/dL (0.2-1.0); CO2 26.6 mmol/L (21.0-32.0); CREATININE 0.93 mg/dL (0.55-1.02); Calcium 8.6 mg/dL (8.5-10.1); Chloride 104 mmol/L (98-107); Glucose 83 mg/dL (74-106); Potassium 3.8 mmol/L (3.5-5.1); Sodium 141 mmol/L (136-145); Total Protein 7.6 g/dL (6.4-8.2)
[2020-08-19 15:49] VITALS: BP 109/69; PULSE 68; RESP 18; TEMP 37.1; O2SAT 100
[2020-08-19 16:20] VITALS: BP 109/69; PULSE 68; RESP 18; TEMP 37.1; O2SAT 100
== END 2020-08-19 15:45 | disposition home or self-care (01) ==
LOC: ER 15:38
PROVIDERS: Emergency Provider Registered Nurse Emergency; PCP Nurse Practitioner
DX: R11.2 Nausea with vomiting, unspecified (principal); R19.7 Diarrhea, unspecified; R30.0 Dysuria
CPT/HCPCS: 36415; 80053; 96361; 96374; 99284; 81003; 81015; 83735; 85025; 87086; J2405

== ENCOUNTER 2020-08-22 03:17 | Emergency (ER) | payer BC, SELFPAY ==
[2020-08-22 03:19] VITALS: BP 78/48; PULSE 125; RESP 20; TEMP 36.6; O2SAT 99
--- NOTE | 2020-08-22 03:39 | W.ED.GENAD ---
Discharge Plan Disposition Patient Disposition: HOME Condition: Good Discharge Details Clinical Impression: Anaphylactic reaction Primary Care Provider: Conuselo Abebe ED Provider: Kervin Horner Meds and New Rx's Prescriptions: New epinephrine [EpiPen 2-Tacos] 0.3 mg/0.3 mL auto-injector 0.3 mg IM ONCE PRN (Reason: anaphylaxis) Qty: 1 RF: 0 prednisone 10 mg tablet 30 mg PO DAILY Qty: 9 RF: 0 Continued prenat.vits,shayna,[id number] Tablet 1 tab PO DAILY RF: 0 levothyroxine 100 mcg tablet 50 mcg PO DAILY RF: 0 docusate sodium [Colace] 100 mg capsule 100 mg PO DAILY PRNRF: 0 desonide 15 GM cream 15 gm Topical PRN PRNRF: 0 clobetasol 15 GM ointment 15 gm Topical PRN PRNRF: 0 Ketoconazole2%cream 2% 1 ea Topical PRN PRNRF: 0 triamcinolone acetonide 0.1 % ointment 1 applic TP BID PRNRF: 0 ondansetron 4 mg tablet,disintegrating 4 mg PO Q8H PRN5 Days Qty: 15 RF: 0 Discharge Instructions Instructions: General Allergic Reaction (ED) Additional Instructions: It will be hard to determine what your reaction was to. Take Benadryl 25 to 50 mg as needed for itching/rash. Prednisone as directed for the next 3 days start this afternoon. EpiPen for emergency use at home. Follow-up with primary care next week. Return to ED if use of EpiPen or worsening allergic symptoms. Referrals: Consuelo Abebe, WIRE GALVANIZER [Primary Care Provider] - Medical Decision Making Patient is tachycardic and hypotensive though neurologically intact. With associated erythematous, pruritic rash, this qualifies as anaphylaxis. Subcu epinephrine ordered. IV established and liter of LR given. Solu-Medrol given. Will observe overnight 4 hours. 7:15 AM- Patient has been stable with no recurrent of her rash. Heart rate normal. Blood pressure occasionally low but patient states that not necessarily abnormal for her. No breathing issues. She has been 3-1/2 hours since subcu epi. Will provide prescription for EpiPen's. She will continue Benadryl 50 mg every 6 hours as needed. Will place her on a prednisone burst for the next 2 days. Will need follow-up and at this point in time no way to determine what her reaction was to. Return to ED for further incidents especially given the breathing with throat swelling. HPI General Mode of arrival: ambulatory. Date/Time Provider Initiated Documentation: 08/22/20 03:39. Limitations to Documentation: no limitations. Information obtained by: patient and RN notes reviewed. HPI Narrative: Patient presents to ED with allergic reaction. Patient currently having GI issues and took ondansetron, famotidine, Imodium at about 1 AM. The ondansetron and famotidine she has taken many times previously. She had use Imodium only a few times with this illness. No other new medications, foods, other triggers. She has redness and itching all over. She had some lip burning but no swelling and no difficulty breathing. She did take 50 mg of Benadryl at home prior to coming in. She had an anaphylaxis-like response when she was a child but none since. Related Data Home Medications Medication Instructions Recorded Confirmed Ketoconazole2%Cream 1 ea TOPICAL PRN PRN 02/03/17 08/19/20 clobetasol 15 gm TOPICAL PRN PRN 02/03/17 08/19/20 desonide 15 gm TOPICAL PRN PRN script 02/03/17 08/19/20 prenat.vits,shayna,[id number] 1 tab PO DAILY 11/28/19 08/19/20 docusate sodium 100 mg capsule 100 mg PO DAILY PRN 03/19/20 08/19/20 triamcinolone acetonide 0.1 % 1 applic TP BID PRN 06/02/20 08/19/20 topical ointment levothyroxine 100 mcg tablet 50 mcg PO DAILY tab-cap 08/06/20 08/19/20 ondansetron 4 mg PO Q8H PRN 5 Days #15 tab 08/19/20 epinephrine [EpiPen 2-Tacos] 0.3 mg IM ONCE PRN #1 ea 08/22/20 prednisone 30 mg PO DAILY #9 tab 08/22/20 Previous Rx's Medication Instructions Recorded ondansetron 4 mg PO Q8H PRN 5 Days #15 tab 08/19/20 epinephrine [EpiPen 2-Tacos] 0.3 mg IM ONCE PRN #1 ea 08/22/20 prednisone 30 mg PO DAILY #9 tab 08/22/20 Allergies Allergy/AdvReac Type Severity Reaction Status Date / Time No Known Allergies Allergy Verified 08/19/20 14:32 General Stated Complaint: Allergic MIREYA: 3 Review of Systems Narrative: As documented in HPI otherwise negative as below. Const: no fever, chills, weakness Resp: no cough, SOB, pleuritic pain CV: no CP, diaphoresis, edema, syncope GI: no abdominal pain, vomiting Neuro: no headache, numbness, focal weakness, confusion PFSH Medical History 40 weeks gestation of Encounter for related examination in first trimester membranes, spontaneous rupture Hypothyroid in , antepartum (11/22/17) Hypothyroidism Ocular migraine x1 Previous surgery to uterus affecting current in third trimester Size of fetus inconsistent with dates in first trimester Size of fetus inconsistent with dates in third trimester Threatened Surgical History cardiac surgery for tetrology of fallot (11/10/92) [facility] section (01/10/18) LTCS. Rafi Montes. Breech s/p unsuccessful ECV. Family History Mother Diabetes Type II Essential hypertension Depression Mental disorder Depression Father Diabetes Essential hypertension CAD (coronary artery disease) Arthritis Depression Hyperlipidemia Mental disorder Depression Myopathy Paternal Uncle Neoplasm Lung Brother Arthritis Social History Smoking/Tobacco Use Status: Never Smoking risk assessment performed?: Yes Alcohol Intake: current Alcohol Intake frequency: holidays/special occasions only Drug use: Never Number of Children: 1 current occupation: [employer] Do you feel safe at home: Yes Do you feel safe in your relationship?: Yes Female Reproductive History Menstrual Age of Menarche: 13 control method: none History History 3 Para 2 Hx # Term Pregnancies 2 Multiple births 0 Hx # Pregnancies 0 Ectopic pregnancies 0 AB induced 0 Hx Number of Living Children 2 AB spontaneous 1 Past Pregnancies Del. Date GA/Weeks # Outcome Route Wgt Sex Labor Lgth Anesthesia Location Prov Complic 01/10/18 39 No Successful 3260.195 g Male [facility] c/[facility] 07/24/20 40 No Successful vaginal 2993.71 g Male [facility] Delivery Date: 01/10/18 failed ecv for breech. MISHEL MACHUCA Delivery Date: 07/24/20 with vacuum assist due to NRFHT; TateNichole Exam Narrative Exam Narrative: Const: WDWN female in NAD. HEENT: NC/AT. Normal facial exam. Normal oropharynx and posterior oropharynx. Eyes: Normal conjunctiva and sclera. Neck: Supple. Trachea midline. No stridor. Lungs: Normal respiratory effort. Lungs are clear. Cor: RRR without murmur/gallop. Good radial pulses. GI: Soft. NT/ND. No guarding or rebound. Neuro: A+O x 3. Normal speech, mentation, gait. Cranial nerves II - XII grossly intact. No gross motor or sensory deficit. Ext: No C/C/E. Skin: Warm and dry with erythematous macular rash involving the torso and proximal extremities which is very pruritic. Course Vital Signs Vital signs: Vital Signs Temperature 97.9 F 08/22/20 03:19 Pulse 125 H 08/22/20 03:19 Respiratory Rate 20 08/22/20 03:19 Blood Pressure 78/48 L 08/22/20 03:19 Pulse Oximetry 99 08/22/20 03:19 Temperature 97.9 F 08/22/20 03:19 Pulse 125 H 08/22/20 03:19 Respiratory Rate 20 08/22/20 03:19 Respiratory Effort Non-Labored 08/22/20 03:28 Respiratory Pattern Normal 08/22/20 03:28 Blood Pressure 78/48 L 08/22/20 03:19 Blood Pressure Position Sitting 08/22/20 03:19 Pulse Oximetry 99 08/22/20 03:19 Oxygen Delivery Method Room Air 08/22/20 03:19 Oxygen Flow Rate 0 08/22/20 03:19 Pain Level 4 08/22/20 03:19
[2020-08-22 03:43] VITALS: TEMP 36.6
[2020-08-22] MEDS: methylPREDNISolone SUCC 125 MG VIAL (03:43)
[2020-08-22] MEDS: EPINEPHrine 0.3 MG KIT (03:43)
[2020-08-22] MEDS: Lactated Ringers 1,000 ML 1000 ML IV (03:44)
[2020-08-22 04:05] VITALS: BP 108/57; PULSE 87; RESP 20; TEMP 36.6; O2SAT 100
[2020-08-22 06:18] VITALS: BP 84/52; PULSE 79; RESP 16; O2SAT 98
[2020-08-22 07:23] VITALS: BP 87/57; PULSE 73; RESP 18; TEMP 37.1; O2SAT 98
== END 2020-08-22 07:23 | disposition home or self-care (01) ==
PROVIDERS: Emergency Provider Emergency Medicine; PCP Nurse Practitioner
DX: T65.91XA Toxic effect of unspecified substance, accidental (unintentional), initial encounter (principal); T78.2XXA Anaphylactic shock, unspecified, initial encounter; I95.9 Hypotension, unspecified; R21 Rash and other nonspecific skin eruption; R00.0 Tachycardia, unspecified
CPT/HCPCS: 96361; 96372; 96374; 99284; J0171; J2930

== ENCOUNTER 2021-06-16 14:24 | Emergency (ER) | payer OTHER, SELFPAY ==
[2021-06-16 14:38] VITALS: BP 123/60; PULSE 81; RESP 14; TEMP 36.7; O2SAT 99
--- NOTE | 2021-06-16 15:36 | ED.GENADUL_ITS ---
Discharge Plan Disposition Patient Disposition: HOME Condition: Stable Discharge Details Clinical Impression: Dog bite Primary Care Provider: Consuelo Abebe ED Provider: Jhon Jones Home Meds and New Rx's Prescriptions: New amoxicillin-pot clavulanate [Augmentin] 875-125 mg tablet 1 tab PO BID Qty: 14 RF: 0 Continued prenat.vits,shayna,ynf-wyls-eodko Tablet 1 tab PO DAILY RF: 0 levothyroxine 100 mcg tablet 50 mcg PO DAILY RF: 0 Deborah 14 mcg/24 hrs (3 yrs) 13.5 mg intrauterine device 1 device intrauterine ONCE RF: 0 docusate sodium [Colace] 100 mg capsule 100 mg PO DAILY PRNRF: 0 desonide 15 GM cream 15 gm Topical PRN PRNRF: 0 clobetasol 15 GM ointment 15 gm Topical PRN PRNRF: 0 Ketoconazole2%cream 2% 1 ea Topical PRN PRNRF: 0 triamcinolone acetonide 0.1 % ointment 1 applic TP BID PRNRF: 0 epinephrine [EpiPen 2-Tacos] 0.3 mg/0.3 mL auto-injector 0.3 mg IM ONCE PRN (Reason: anaphylaxis) Qty: 1 RF: 0 Discharge Instructions Additional Instructions: you were given a dose of rabies vaccine today, and you should be contacted to arrange another dose on Monday if any issues with getting the vaccine you can always return to the ED if you have severe worsening pain, fevers or feel more ill return to the emergency department Medical Decision Making 30 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 She was at work last night and a dog bit her in the right lower back/hip. She did not sustain other injuries and was told initially the dog was utd on its vaccines but found out today it wasn't and doesn't believe she can have the dog watched. She has no other symptoms. She has a 3cm area of bruising of the right lower back with an already healing puncture wound no other injuries or crepitus. Will start her on augmentin. Discussed with her and given she is not sure she can find out about having the dog watched she prefers vaccination. Will provide rabies vaccine, immunoglobulin not indicated as she is vaccinated already in the past and will need one more dose on day 3. Return precautions given. Advised she should be able to get the vaccine in infusion room on Monday and I filled the order out but advised if any issues she can return to the ED Differential Diagnosis Differential Diagnosis: dog bite, laceration HPI General Mode of arrival: ambulatory . Date/Time Provider Initiated Documentation: 06/16/21 14:42 . Limitations to Documentation: no limitations . Information obtained by: patient . History of Present Illness 30 year old F presents to the emergency department with the chief complaint of dog bite, described as mild, Quality is described as aching, Patient started experiencing this day(s) (1) and it has been constant. No relieving factors improve symptom(s), No exacerbating factors reported . Patient notes no other symptoms.. Related Data Home Medications Medication Instructions Recorded Confirmed Ketoconazole2%Cream 1 ea TOPICAL PRN PRN 02/03/17 10/13/20 clobetasol 15 gm TOPICAL PRN PRN 02/03/17 10/13/20 desonide 15 gm TOPICAL PRN PRN script 02/03/17 10/13/20 prenat.vits,shayna,lxf-ocim-luezy 1 tab PO DAILY 11/28/19 10/13/20 docusate sodium 100 mg capsule 100 mg PO DAILY PRN 03/19/20 10/13/20 triamcinolone acetonide 0.1 % 1 applic TP BID PRN 06/02/20 10/13/20 topical ointment levothyroxine 100 mcg tablet 50 mcg PO DAILY tab-cap 08/06/20 10/13/20 epinephrine [EpiPen 2-Tacos] 0.3 mg IM ONCE PRN #1 ea 08/22/20 10/13/20 levonorgestrel 14 mcg/24 hrs (3 1 device INTRAUTERINE ONCE 10/13/20 10/13/20 yrs) 13.5 mg intrauterine device amoxicillin-pot clavulanate 1 tab PO BID #14 tab 06/16/21 [Augmentin] Previous Rx's Medication Instructions Recorded epinephrine [EpiPen 2-Tacos] 0.3 mg IM ONCE PRN #1 ea 08/22/20 amoxicillin-pot clavulanate 1 tab PO BID #14 tab 06/16/21 [Augmentin] Allergies Allergy/AdvReac Type Severity Reaction Status Date / Time No Known Allergies Allergy Verified 10/13/20 13:45 unknown Allergy Severe Anaphylaxis Uncoded 10/13/20 13:21 General Stated Complaint: AnimalBite MIREYA: 4 Review of Systems All systems reviewed & are unremarkable except as noted in HPI and below Constitutional Constitutional: Denies chills and Denies fever(s) Cardiovascular Cardiovascular: Denies chest pain and Denies dyspnea Respiratory Respiratory: Denies cough and Denies dyspnea Gastrointestinal Gastrointestinal: Denies abdominal pain, Denies nausea and Denies vomiting Musculoskeletal Musculoskeletal: Denies joint swelling [facility] Medical History (Updated 06/16/21 @ 15:41 by Jhon Jones MD) Adjustment disorder, unspecified (02/02/17) Anaphylactic reaction Unclear cause; [place] [facility]ergy Atopic dermatitis Eczema (11/30/16) Hypothyroidism Ocular migraine x1 Varicella zoster (08/16/17) outbreak treated w/ acyclovir 5x/d Surgical History cardiac surgery for tetrology of fallot (11/10/92) [facility] section (01/10/18) LTCS. Rafi Montes. Breech s/p unsuccessful ECV. H/O tetralogy of Fallot repair (12/21/16) valve-sparing surgical repair w/ pulmonary valvotomy, infundibular resection and RVOT patch 1991 [facility] Family History Mother Diabetes Type II Essential hypertension Depression Mental disorder Depression Father Diabetes Essential hypertension CAD (coronary artery disease) Arthritis Depression Hyperlipidemia Mental disorder Depression Myopathy Paternal Uncle Neoplasm Lung Brother Arthritis Social History Smoking/Tobacco Use Status: Never Smoking risk assessment performed?: Yes Alcohol Intake: current Alcohol Intake frequency: holidays/special occasions only Drug use: Never Substance use type: does not use Number of Children: 1 current occupation: [employer] Do you feel safe at home: Yes Do you feel safe in your relationship?: Yes Female Reproductive History Menstrual Age of Menarche: 13 control method: none History History 3 Para 2 Hx # Term Pregnancies 2 Multiple births 0 Hx # Pregnancies 0 Ectopic pregnancies 0 AB induced 0 Hx Number of Living Children 2 AB spontaneous 1 Past Pregnancies Del. Date GA/Weeks # Outcome Route Wgt Sex Labor Lgth Anesthes ia Location Prov Complic 01/10/18 39 No Successful 3260.195 g Male [facility], later [facility] c/s betty donaldson 07/24/20 40 No Successful vaginal 2993.71 g Male [facility] Delivery Date: 01/10/18 failed ecv for breech. Mishel Lr Delivery Date: 07/24/20 with vacuum assist due to NRFHT; Nichole Ybarra Exam Const General: no acute distress Orientation: alert HENMT Head: normal to inspection Ears: external ears normal General nose exam: external nose normal Mouth: moist mucous membranes Eyes General: appearance normal, both eyes and all related structures Neck Neck: normal visual inspection Resp Effort & Inspection: normal respiratory effort and able to speak in complete sentences Cardio Rate: regular rate Skin General skin exam: elasticity normal Neuro General: patient alert and patient oriented x3 Extrem General: normal to inspection Psych Mental Status: mental status grossly normal Course Vital Signs Vital signs: Vital Signs Temperature 36.7 C 06/16/21 14:38 Pulse 81 06/16/21 14:38 Respiratory Rate 14 06/16/21 14:38 Blood Pressure 123/60 06/16/21 14:38 Pulse Oximetry 99 06/16/21 14:38 Temperature 36.7 C 06/16/21 14:38 Temperature Source Skin 06/16/21 14:38 Pulse 81 06/16/21 14:38 Respiratory Rate 14 06/16/21 14:38 Respiratory Effort 06/16/21 14:43 Blood Pressure 123/60 06/16/21 14:38 Blood Pressure Position Sitting 06/16/21 14:38 Pulse Oximetry 99 06/16/21 14:38 Oxygen Delivery Method Room Air 06/16/21 14:38 Oxygen Flow Rate 0 06/16/21 14:38 Pain Level 4 06/16/21 14:38 Comment 06/16/21 14:38 PAWSS Have you Been Recently Intoxicated or Drunk Within the Last 30 days?: Yes Have you Ever Experienced Previous Episodes of Alcohol Withdrawal?: No Have you ever Experienced Withdrawal Seizures?: No Have you ever Experienced Delirium Tremens(DT)s?: No Have you ever undergone Alcohol Rehabilitation Treatment (i.e, inpt ot outpatient treatment programs)?: No Have you ever Experienced Blackouts?: Yes Have you ever Combined Alcohol with other Downers within the last 90 days?: No Have you ever Combined Alcohol with any other Substance of Abuse during the last 90 days?: No Positive Blood Alcohol level on Presentation? [PCS.BAL]: No Evidence of Increased Autonomic Activity (i.e. HR>120, tremor, sweating, agitation, nausea)?: No Result: 2
[2021-06-16] MEDS: Amoxicillin 875/Clav. 125 TAB PO (15:41)
== END 2021-06-16 16:55 | disposition home or self-care (01) ==
PROVIDERS: Emergency Provider Emergency Medicine; PCP Nurse Practitioner
DX: S31.050A Open bite of lower back and pelvis without penetration into retroperitoneum, initial encounter (principal); W54.0XXA Bitten by dog, initial encounter; Y99.0 Civilian activity done for income or pay
CPT/HCPCS: 90471; 99284; 90675; 99283

== ENCOUNTER 2021-06-19 00:53 | Outpatient (RCR) | payer BC, SELFPAY | END 2021-07-06 23:59 | disposition home or self-care (01) | LOC: INF 00:53 | PROVIDERS: PCP Nurse Practitioner; Visit Provider Emergency Medicine | DX: Z23 Encounter for immunization (principal) | CPT/HCPCS: 90471; 96372; 90675 ==

== ENCOUNTER 2022-04-28 03:54 | Outpatient (CLI) | payer BC, SELFPAY ==
[2022-04-28 13:37] LABS: Anion Gap 7.9 mmol/L (3-11); BUN 20 mg/dL (7-18); CO2 29.1 mmol/L (21.0-32.0); CREATININE 0.8 mg/dL (0.55-1.02); Calcium 9.2 mg/dL (8.5-10.1); Calculated LDL 82 mg/dL (<100); Chloride 103 mmol/L (98-107); Cholesterol 157 mg/dL (<200); Estimated GFR 101.59 (mL/min/1.73m2); Glucose 82 mg/dL (74-106); HDL Cholesterol 66 mg/dL (40-60); Sodium 140 mmol/L (136-145); Triglyceride 47 mg/dL (<150)
== END 2022-04-28 03:55 | disposition home or self-care (01) ==
LOC: LOS 03:55
PROVIDERS: PCP Nurse Practitioner; Visit Provider Student in an Organized Health Care Education/Training Program
DX: E03.9 Hypothyroidism, unspecified (principal); E86.0 Dehydration; Z13.220 Encounter for screening for lipoid disorders
CPT/HCPCS: 36415; 80048; 80061; 84443

== ENCOUNTER 2023-02-20 15:46 | Outpatient (CLI) | payer BC, SELFPAY ==
--- NOTE | 2023-02-20 13:45 | DI.RAD_ITS ---
Exam(s) XR FOOT RT COMPLETE EXAM: XR FOOT RT COMPLETE CLINICAL HISTORY: right foot swelling, pain,m79.89. TECHNIQUE: 2D digital imaging was performed. Three views. COMPARISON: No exams were available for comparison FINDINGS: BONES: No acute fracture is present. No bony destructive lesion is seen. JOINTS: No dislocation present. SOFT TISSUE: Dorsal soft tissue swelling. No foreign body or gas collection. IMPRESSION: Soft tissue swelling. DATA REPOSITORY: RADIATION DOSE DELIVERED:
--- NOTE | 2023-02-20 14:00 | DI.US_ITS ---
Exam(s) US LOWER EXTREMITY VENOUS RT EXAM: US LOWER EXTREMITY VENOUS RT CLINICAL HISTORY: foot swelling,? DVT,M79.89. TECHNIQUE: Lower extremity venous ultrasound performed using grayscale, color-flow, and spectral Do ppler analysis. COMPARISON: No exams were available for comparison FINDINGS: The common femoral, femoral and popliteal veins demonstrate normal compressibility, augmentation, and color Doppler. The posterior tibial veins are patent. No saphenous vein thrombosis or other superfi cial venous thrombosis is seen. No hematoma or Escobar's cyst is seen. IMPRESSION: Negative lower extremity ultrasound. No evidence of DVT. DATA REPOSITORY:
== END 2023-02-20 16:06 ==
PROVIDERS: PCP Nurse Practitioner; Visit Provider Physician Assistant
DX: M79.89 Other specified soft tissue disorders (principal); M79.671 Pain in right foot
CPT/HCPCS: 73630; 93971

== ENCOUNTER 2023-07-21 22:19 | Outpatient (REF) | payer BC, SELFPAY | END 2023-07-21 22:20 | disposition home or self-care (01) | LOC: NCHCN 22:19 | PROVIDERS: PCP Nurse Practitioner; Visit Provider Physician Assistant | DX: J02.9 Acute pharyngitis, unspecified (principal) | CPT/HCPCS: 87070 ==

== ENCOUNTER 2023-12-27 15:17 | Outpatient (REF) | payer BC, SELFPAY ==
--- NOTE | 2023-12-27 15:00 | PAPFT_PTH ---
PATIENT: Glenny Jones LOC: [facility] U#:[id number] AGE/SX: 33/F ROOM: RE12/27/[address]: Siena Jones NP : 1990 BED: DIS: 12/27/2023 SPEC #: [id number] RECD: 12/27/23 17:55 STATUS: IMER RENloberto #: [id number] BEENA: 12/27/23 15:[address]: Karen ADAMS,Siena DEPT: [facility] Cytology RECD BY: Tracey Reeder ENTERED: 12/27/23 17:55 SP TYPE: PAPFT OTHR DR: Consuelo Abebe APRN Tissues: 1 - CX/ENDOCX FOR PAP SMEARS Procedures: PAP THIN PREP/UVM Screening HPV DNA PROBE Comments: [id number] (CHLAMYDIA/GC)
[2023-12-28 14:48] LABS: Chlamydia Result Negative (Negative); GC Result Negative (Negative)
== END 2023-12-27 15:18 | disposition home or self-care (01) ==
LOC: LBN 15:17
PROVIDERS: PCP Nurse Practitioner; Visit Provider Nurse Practitioner Women's Health
DX: Z30.430 Encounter for insertion of intrauterine contraceptive device (principal); Z12.4 Encounter for screening for malignant neoplasm of cervix
CPT/HCPCS: 87491; 87591; 88142; 87624

== ENCOUNTER 2024-03-20 03:25 | Outpatient (CLI) | payer BC, SELFPAY ==
[2024-03-20 17:07] LABS: TSH (W/Ref FT4) 0.05 uIU/mL (0.36-3.74)
[2024-03-20 17:51] LABS: FREE T4 1.22 ng/dL (0.76-1.46)
== END 2024-03-20 03:26 | disposition home or self-care (01) ==
LOC: LBO 03:26
PROVIDERS: PCP Nurse Practitioner; Visit Provider Nurse Practitioner
DX: E03.9 Hypothyroidism, unspecified (principal)
CPT/HCPCS: 36415; 84439; 84443

== ENCOUNTER 2024-12-03 10:52 | Outpatient (CLI) | payer BC, SELFPAY ==
[2024-12-03 11:13] LABS: HCT 35.2 % (36.0-46.0); HGB 11.4 g/dL (11.2-15.7); MCH 27.9 pg (27.0-33.0); MCHC 32.4 % (32.0-36.0); MCV 86 fL (80-95); Platelet Count 310 10^3/uL (130-400); RBC 4.08 10^6/uL (3.93-5.22); RDW 14.6 % (11.7-14.6); RDW-SD 46.2 fL; WBC 6.62 10^3/uL (4.4-10.8)
[2024-12-03 12:09] LABS: HCG Quant, Pregnancy 26532 mIU/mL (1-3)
== END 2024-12-03 10:53 | disposition home or self-care (01) ==
LOC: LBO 10:54
PROVIDERS: PCP Nurse Practitioner; Visit Provider Obstetrics & Gynecology
DX: O20.9 Hemorrhage in early pregnancy, unspecified (principal)
CPT/HCPCS: 36415; 85027; 84702

== ENCOUNTER 2024-12-05 14:31 | Outpatient (CLI) | payer BC, SELFPAY ==
[2024-12-05 12:23] LABS: HCG Quant, Pregnancy 34800 mIU/mL (1-3)
== END 2024-12-05 14:32 | disposition home or self-care (01) ==
LOC: LBO 14:33
PROVIDERS: PCP Nurse Practitioner; Visit Provider Obstetrics & Gynecology
DX: O20.9 Hemorrhage in early pregnancy, unspecified (principal)
CPT/HCPCS: 36415; 84702

== ENCOUNTER 2025-01-13 02:38 | Outpatient (CLI) | payer BC, SELFPAY ==
[2025-01-13 12:02] LABS: Panorama Kit Sent via Fed Ex
[2025-01-13 12:16] LABS: Abs Immature Grans 0.02 10^3/uL (0.0-0.06); Absolute Basophil Count 0.03 10^3/uL (0.0-0.2); Absolute Eosinophil Count 0.34 10^3/uL (0.0-0.7); Absolute Lymphocyte Count 1.44 10^3/uL (1.2-3.4); Absolute Neutrophil Count 4.14 10^3/uL (1.2-6.7); Basophils % 0.5 %; Eosinophils % 5.3 %; HCT 36.3 % (36.0-46.0); HGB 11.8 g/dL (11.2-15.7); Immature Grans % 0.3 %; Lymphocytes % 22.3 %; MCH 27.8 pg (27.0-33.0); MCHC 32.5 % (32.0-36.0); MCV 86 fL (80-95); MPV 11.2 fL (8.0-11.0); Monocytes % 7.7 %; Neutrophils % 63.9 %; Platelet Count 273 10^3/uL (130-400); RBC 4.24 10^6/uL (3.93-5.22); RDW 13.4 % (11.7-14.6); RDW-SD 42.4 fL; WBC 6.47 10^3/uL (4.4-10.8)
[2025-01-14 08:47] LABS: Hepatitis B Surface Ag Negative (Negative)
[2025-01-14 09:17] LABS: HIV-1/2 Ag & Ab Screen Negative (Negative)
[2025-01-14 09:32] LABS: Hepatitis C Ab w Rflx HCV PCR Negative (Negative)
[2025-01-14 10:56] LABS: Rubella IgG Ab (UVM) Positive (See Note); Varicella IgG Antibody Positive (See Note)
[2025-01-15 20:53] LABS: Syphilis IgG w/Reflex Nonreactive (Nonreactive)
[2025-01-16 12:40] LABS: Toxoplasma Ab, IgG Negative (Negative); Toxoplasma Ab, IgM Negative (Negative); Toxoplasma IgG Value <3 IU/mL
== END 2025-01-13 02:39 | disposition home or self-care (01) ==
LOC: LBO 02:38
PROVIDERS: Advanced Practice Midwife; PCP Nurse Practitioner; Visit Provider Advanced Practice Midwife
DX: Z34.91 Encounter for supervision of normal pregnancy, unspecified, first trimester (principal); E03.9 Hypothyroidism, unspecified; Z87.898 Personal history of other specified conditions; Z3A.11 11 weeks gestation of pregnancy
CPT/HCPCS: 36415; 86787; 86803; 86850; 86900; 86901; 87340; 87389; 84443; 85025; 86762; 86777; 86778; 86780

== ENCOUNTER 2025-01-13 10:53 | Outpatient (REF) | payer BC, SELFPAY | END 2025-01-13 10:54 | disposition home or self-care (01) | LOC: LBN 10:53 | PROVIDERS: PCP Nurse Practitioner; Visit Provider Advanced Practice Midwife | DX: Z34.91 Encounter for supervision of normal pregnancy, unspecified, first trimester (principal) | CPT/HCPCS: 87086 ==

== ENCOUNTER 2025-04-09 13:55 | Outpatient (REF) | payer BC, SELFPAY ==
[2025-04-10 11:33] LABS: Chlamydia Result Negative (Negative); GC Result Negative (Negative)
== END 2025-04-09 13:56 | disposition home or self-care (01) ==
LOC: LBN 13:55
PROVIDERS: PCP Nurse Practitioner; Visit Provider Advanced Practice Midwife
DX: Z34.92 Encounter for supervision of normal pregnancy, unspecified, second trimester (principal)
CPT/HCPCS: 87491; 87591

== ENCOUNTER 2025-05-01 10:34 | Emergency (ER) | payer BC, SELFPAY ==
--- NOTE | 2025-05-01 10:30 | RT.EKG_ITS ---
APPROVED REPORT Exam: Resting ECG Reason for Exam: Jaw Pain Patient Location: E HR:85 bpm ECG Measurements Heart Rate 85 AXIS MI 120 P 52 QRSd 138 QRS 74 QT 382 T 21 QTc 455 Conclusion Sinus rhythm...normal P axis, V-rate 60- 99 Right bundle branch block...QRSd>120, terminal axis(90,270) Probable inferior infarct, old...Q>35mS, II III aVF Physician: No STEMI
[2025-05-01 10:35] VITALS: BP 120/80; PULSE 94; RESP 16; TEMP 36.7; O2SAT 98
[2025-05-01 10:43] VITALS: BP 120/80; PULSE 94; RESP 16; TEMP 36.7; O2SAT 98
--- NOTE | 2025-05-01 11:06 | W.ED.GENAD ---
Discharge Plan Disposition Patient Disposition: Home Condition: Good Discharge Details Clinical Impression: Jaw pain Primary Care Provider: Consuelo Abebe ED Provider: Carlos Alcantara Home Meds and New Rx's Prescriptions: No Action docusate sodium [Colace] 100 mg capsule 100 mg PO DAILY DHA 200 mg capsule 200 mg PO DAILY loratadine [Claritin] 10 mg tablet 10 mg PO DAILY bupropion HCl 300 mg tablet extended release 24 hr 300 mg PO QAM Qty: 90 1RF sertraline 50 mg tablet 50 mg PO DAILY Qty: 90 1RF Ketoconazole2%cream 2% 1 ea Topical PRN PRN Patient Comments: ([facility] Derm). Mix w/ Desonide ointment,apply to affected areas on face twice daily for 1-2 weeks, then daily on its own for maintence. triamcinolone acetonide 0.1 % ointment 1 applic TP BID PRN Rx Instructions: apply to affected areas neck-down bis prn mild to moderate flare up to 14 days /mo not dated 09/26/19 [facility] clobetasol 0.05 % ointment 1 applic Topical DAILY PRN (Reason: eczema arms) Qty: 30 2RF epinephrine [EpiPen 2-Tacos] 0.3 mg/0.3 mL auto-injector 0.3 mg IM ONCE PRN (Reason: anaphylaxis) Qty: 1 0RF Rx Instructions: as a single dose Discharge Instructions Instructions: Temporomandibular joint (TMJ) disorders, Diclofenac (Topical) Additional Instructions: At this time your exam shows no evidence of acute infection, heart dysfunction, temporal arteritis, or other significant abnormality. I am concerned that your symptoms are secondary to irritation and stretching from your temporomandibular joint. Please continue to take Tylenol as needed. Please apply ice frequently, and please perform the stretching exercises that we discussed together as frequently as possible throughout the day. We have given you topical diclofenac gel. Pharmaceutical research suggest that the medication can still be used when less than 30 weeks gestation. While there is always a mild risk, the risk is significantly lower considering the topical component. Please use the gel only as needed for breakthrough pain management. If you notice any worsening of your symptoms, or any new symptoms such as vomiting, diarrhea, fever, chills, shortness of breath, chest pain, numbness, weakness, or fainting , please return immediately to the emergency department for reevaluation. Please follow up with your primary care provider as soon as possible for reassessment and reevaluation. As always, it was a pleasure participating in your medical care today. Referrals: Consuelo Abebe NP [Primary Care Provider, Medicine] Discharge Data Discharge Date/Time-TO BE ENTERED AT DEPARTURE: 05/01/25 11:31 HPI General Date/Time Provider Initiated Documentation: 05/01/25 10:40. 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 Patient states that she has known wisdom teeth that are impacted, she has a posterior right lower molar that is capped chronically. For the last week she has had an achiness in her right jaw on the angle of the mandible. It has also caused a tingling and numb sensation to spread from the right lower jaw towards the anterior aspect of the jaw on the right. She did see her dentist 4 days ago on Monday morning, she had x-rays at that time which per the dentist showed no signs of cavity or other significant abnormality. There is concern for temporomandibular joint irritation and she was given an oral brace to wear. She has been wearing this without significant improvement. ENT referral was placed however she has not been able to follow-up with ENT yet. She did contact her [facility] short order/nursing network systems administrator today and they recommended she go to the emergency department for further assessment. Patient denies any ear pain but does state that the jaw pain does radiate towards her ear. She is slight worsening of her symptoms when moving her jaw, but does not have significant pain with chewing. She denies fever or chills. She denies burning sensation. She denies any other complaints at this time. No history of trauma to the jaw. No other complaints at this time. She has been taking Tylenol for pain as well as icing the jaw without significant improved Related Data Home Medications ?Medication ?Instructions ?Recorded ?Confirmed Ketoconazole2%Cream 1 ea topical PRN PRN 02/03/17 05/01/25 triamcinolone acetonide 0.1 % 1 applic topical BID PRN 06/02/20 05/01/25 topical ointment epinephrine 0.3 mg/0.3 mL 0.3 mg (0.3 mL) IM ONCE PRN 08/22/20 05/01/25 injection, auto-injector (EpiPen anaphylaxis #1 ea 2-Tacos) clobetasol 0.05 % topical ointment 1 applic topical DAILY PRN eczema 09/08/22 05/01/25 arms #30 grams loratadine 10 mg tablet (Claritin) 10 mg PO DAILY 03/06/24 05/01/25 bupropion HCl 300 mg 24 hr tablet, 300 mg PO QAM #90 tabs 12/09/24 05/01/25 extended release sertraline 50 mg tablet 50 mg PO DAILY #90 tabs 12/09/24 05/01/25 docosahexaenoic acid 200 mg 200 mg PO DAILY 01/13/25 05/01/25 capsule ( DHA) docusate sodium 100 mg capsule 100 mg PO DAILY 01/13/25 05/01/25 (Colace) Previous Rx's ?Medication ?Instructions ?Recorded epinephrine 0.3 mg/0.3 mL 0.3 mg (0.3 mL) IM ONCE PRN 08/22/20 injection, auto-injector (EpiPen anaphylaxis #1 ea 2-Tacos) clobetasol 0.05 % topical ointment 1 applic topical DAILY PRN eczema 09/08/22 arms #30 grams bupropion HCl 300 mg 24 hr tablet, 300 mg PO QAM #90 tabs 12/09/24 extended release sertraline 50 mg tablet 50 mg PO DAILY #90 tabs 12/09/24 Allergies Allergy/AdvReac Type Severity Reaction Status Date / Time unknown Allergy Severe Anaphylaxis Uncoded 05/01/25 10:44 cats Allergy Mild Other (See Uncoded 05/01/25 10:44 Comment) General Stated Complaint: FacialProb MIREYA: 4 Exam Narrative Exam Narrative: 1.Const: Well-nourished, Well-developed, appearing stated age 2.Eyes: PERRL, no conjunctival injection, and symmetrical lids. 3.ENT: Atraumatic external nose and ears. Moist MM. Neck: Symmetric, trachea midline, No thyromegaly. Right lower posterior molar shows notable plaque around the base of the molar, but no clear evidence of infection or tooth decay. She does have a filling in that right lower posterior molar as well. Palpation around the tooth shows no evidence of periapical abscess. Parotid gland is nondistended, nonenlarged and relatively nontender on the right and left. Jaw opens relatively symmetric without any significant crepitus or grinding on the right compared to the left. No evidence of otitis media or otitis externa. No evidence of mastoid tenderness. No tenderness over the temporal artery bilaterally. No nuchal rigidity or neck stiffness. 4.CVS: +S1/S2, cardiac murmur auscultated. Peripheral pulses 2+ and equal in all extremities. Brisk capillary refill in all extremities. 5.RESP: Unlabored respiratory effort. Clear to auscultation bilaterally. No wheezes rales or rhonchi 6.GI: Soft, Nontender/Nondistended, No hepatosplenomegaly. No guarding or rebound. Appropriately gravid abdomen 7.MSK: Normocephalic/Atraumatic, Extremities w/o deformity or ttp No cyanosis or clubbing, Normal movement of all extremities 8.Skin: Warm, Dry. No rashes or lesions. 9.Neuro: advanced practice registered nurse II-XII grossly intact. Sensation grossly intact, no focal neurologic deficits. 10.Psych: (AAO) x3. Appropriate mood and affect Course Vital Signs Vital signs: Vital Signs Temperature 36.7 C 05/01/25 10:35 Pulse 94 H 05/01/25 10:35 Respiratory Rate 16 05/01/25 10:35 Blood Pressure 120/80 05/01/25 10:35 Pulse Oximetry 98 05/01/25 10:35 Temperature 36.7 C 05/01/25 10:43 Temperature Source Oral 05/01/25 10:43 Pulse 94 H 05/01/25 10:43 Respiratory Rate 16 05/01/25 10:43 Blood Pressure 120/80 05/01/25 10:43 Blood Pressure Position Sitting 05/01/25 10:43 Pulse Oximetry 98 05/01/25 10:43 Oxygen Delivery Method Room Air 05/01/25 10:43 Oxygen Flow Rate 0 05/01/25 10:43 Pain Level 8 05/01/25 10:48 Medical Decision Making This is a pleasant 34-year-old female with a past medical history of 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 Patient states that she has known wisdom teeth that are impacted, she has a posterior right lower molar that is capped chronically. For the last week she has had an achiness in her right jaw on the angle of the mandible. It has also caused a tingling and numb sensation to spread from the right lower jaw towards the anterior aspect of the jaw on the right. She did see her dentist 4 days ago on Monday morning, she had x-rays at that time which per the dentist showed no signs of cavity or other significant abnormality. There is concern for temporomandibular joint irritation and she was given an oral brace to wear. She has been wearing this without significant improvement. ENT referral was placed however she has not been able to follow-up with ENT yet. She did contact her [facility] cook short order/nursing network systems administrator today and they recommended she go to the emergency department for further assessment. Patient denies any ear pain but does state that the jaw pain does radiate towards her ear. She is slight worsening of her symptoms when moving her jaw, but does not have significant pain with chewing. She denies fever or chills. She denies burning sensation. She denies any other complaints at this time. No history of trauma to the jaw. No other complaints at this time. She has been taking Tylenol for pain as well as icing the jaw without significant improved Atraumatic external nose and ears. Moist MM. Neck: Symmetric, trachea midline, No thyromegaly. Right lower posterior molar shows notable plaque around the base of the molar, but no clear evidence of infection or tooth decay. She does have a filling in that right lower posterior molar as well. Palpation around the tooth shows no evidence of periapical abscess. Parotid gland is nondistended, nonenlarged and relatively nontender on the right and left. Jaw opens relatively symmetric without any significant crepitus or grinding on the right compared to the left. No evidence of otitis media or otitis externa. No evidence of mastoid tenderness. No tenderness over the temporal artery bilaterally. No nuchal rigidity or neck stiffness. EKG demonstrates sinus rhythm with right bundle branch block. No carotid bruits. No electrical sensation in the neck or pain in the neck to suggest carotid pathology. No tenderness in the confucianist to suggest temporal arteritis. No evidence of periapical abscess, Ludewig's angina or other oral abnormality. No other evidence of mastoiditis, otitis media or otitis externa. With the negative x-rays from the dental office, likelihood of infection is notably low especially given that she has no tenderness over the molar at the tooth itself or the apical area. No parotid gland swelling or tenderness to suggest sialolith or parotitis. Suspect symptomatology related to right temporomandibular laxity. Discussed stretching exercises, as well as the importance of continued Tylenol. We did discuss topical Voltaren gel, small amounts. There is risks and benefits associated with however she still remains under the 30-week steve after which point it is no longer recommended orally. Clearly there is certainly significant less uptake when performed topically, especially in a small quantity. Otherwise recommend ice. Discussed red flags which to return. I have extensively reviewed the treatment plan and discharge instructions with the patient. I have addressed all patient concerns at this time. The patient was made aware of what symptoms to monitor for that would warrant a return to the emergency department. Discussed the plan with the patient, they demonstrate verbal understanding and agreement with our assessment and plan at this time. The documentation in this chart was dictated using [employer] dictation software. Please excuse any dictation errors. PFSH All Active Problems (Updated 05/01/25 @ 11:07 by Carlos Alcantara DO) Jaw pain (Acute) Adult congenital heart disease (Acute) [facility] Cardio 04/08/25 Previous section (Chronic) Tetralogy of Fallot s/p repair (Acute) Heart murmur (Acute) Varicella zoster (Acute 08/16/17) outbreak treated w/ acyclovir 5x/d , Recurrence 12/2024 Depression (Chronic) History of exposure to cat feces (Acute) (Acute) Bleeding in early (Acute) Depression affecting , (Acute) Attention deficit disorder (ADD) in adult (Acute) Medical History (Updated 05/01/25 @ 11:07 by Carlos Alcantara DO) Pulmonic valve regurgitation Premature ventricular contraction Tricuspid regurgitation Cellulitis right leg with edema. one episode after a cut and one spontaneous and associated with foot pain Hypothyroidism Alopecia areata (02/01/17) Seborrheic dermatitis (02/01/17) Atopic dermatitis 11/13/23 DERM Eczema (11/30/16) Rash and nonspecific skin eruption Macular per exam ... Hx some raised areas, off/on. Shifting sleep-work schedule Works @ [employer] with 2nd shift work @ times Rosacea Multiple nevi Dermal nevus of cheek 05/09/[address] Yao, [facility] Derm left cheek, History of shingles Tetralogy of Fallot (11/30/16) 11/13/23 Cardiolgy Dog bite Anaphylactic reaction Unclear cause; refer to [facility] Allergy Ocular migraine x1 Adjustment disorder, unspecified (02/02/17) Surgical History (Updated 01/15/25 @ 08:33 by Yulissa Orlando CNM) H/O tetralogy of Fallot repair (12/21/16) valve-sparing surgical repair w/ pulmonary valvotomy, infundibular resection and RVOT patch 1991 [facility] cardiac surgery for tetrology of fallot (11/10/92) [facility] section (01/10/18) SILVER. Rafi Montes. Breech s/p unsuccessful ECV. Family History (Updated 01/13/25 @ 10:55 by Yulissa Orlando CNM) Mother Diabetes Type II Essential hypertension Depression Mental disorder Depression Father Diabetes Essential hypertension CAD (coronary artery disease) Arthritis Depression Hyperlipidemia Mental disorder Depression Myopathy Atrial flutter Paternal Uncle Neoplasm Lung Brother Arthritis Social History Smoking/Tobacco Use Status: Never Smoking risk assessment performed?: Yes Alcohol Intake: current Alcohol Intake frequency: holidays/special occasions only Drug use: Never Substance use type: does not use Number of Children: 1 current occupation: [employer] Do you feel safe at home: Yes Do you feel safe in your relationship?: Yes Female Reproductive History Menstrual Age of Menarche: 13 control method: progestin IUCD History History 4 Para 2 Hx # Term Pregnancies 2 Multiple births 0 Hx # Pregnancies 0 Ectopic pregnancies 0 AB induced 0 Hx Number of Living Children 2 AB spontaneous 1 Past Pregnancies Del. Date GA/Weeks # Preg Succ Route Wgt Sex Labor Lgth Anesthesia Location Prov Complic 01/10/18 39 No 3260.195 g Male [facility] c/[facility] donaldson 07/24/20 40 No vaginal 2993.[address] [facility] Delivery Date: 01/10/18 Last Updated by: Mishel Lr CNM failed ecv for breech. Delivery Date: 07/24/20 Last Updated by: Nichole Varghese LPN with vacuum assist due to NRFHT;
[2025-05-01] MEDS: Diclofenac 1% Gel 100 GM TUBE TP (11:21)
[2025-05-01 11:22] VITALS: PULSE 85; O2SAT 99
== END 2025-05-01 11:31 | disposition home or self-care (01) ==
PROVIDERS: Emergency Provider Student in an Organized Health Care Education/Training Program; PCP Nurse Practitioner
DX: O26.892 Other specified pregnancy related conditions, second trimester (principal); R68.84 Jaw pain; Q21.3 Tetralogy of Fallot; Z3A.27 27 weeks gestation of pregnancy
CPT/HCPCS: 93005; 99283; 93010

== ENCOUNTER 2025-05-05 04:10 | Outpatient (CLI) | payer BC, SELFPAY ==
[2025-05-05 14:16] LABS: HCT 35.6 % (36.0-46.0); HGB 11.4 g/dL (11.2-15.7); MCH 28.3 pg (27.0-33.0); MCHC 32.0 % (32.0-36.0); MCV 88 fL (80-95); MPV 10.8 fL (8.0-11.0); Platelet Count 232 10^3/uL (130-400); RBC 4.03 10^6/uL (3.93-5.22); RDW 14.3 % (11.7-14.6); RDW-SD 46.0 fL; WBC 6.58 10^3/uL (4.4-10.8)
[2025-05-05 15:42] LABS: Glucose,1 Hr (Glucola) 97 mg/dL (80-140)
== END 2025-05-05 04:11 | disposition home or self-care (01) ==
LOC: LBO 04:10
PROVIDERS: Advanced Practice Midwife; PCP Nurse Practitioner; Visit Provider Advanced Practice Midwife
DX: Z34.92 Encounter for supervision of normal pregnancy, unspecified, second trimester (principal)
CPT/HCPCS: 36415; 82950; 85027

== ENCOUNTER 2025-05-25 01:10 | Emergency (ER) | payer BC, SELFPAY ==
[2025-05-25 01:13] VITALS: BP 128/61; PULSE 88; RESP 18; TEMP 36.5; O2SAT 98
--- NOTE | 2025-05-25 01:13 | ED.GENADUL_ITS ---
Discharge Plan Disposition Patient Disposition: Home Condition: Good Discharge Details Clinical Impression: Jaw pain, Currently Primary Care Provider: Consuelo Abebe ED Provider: Anu Mckenzie Home Meds and New Rx's Prescriptions: Continued docusate sodium [Colace] 100 mg capsule 100 mg PO DAILY DHA 200 mg capsule 200 mg PO DAILY loratadine [Claritin] 10 mg tablet 10 mg PO DAILY bupropion HCl 300 mg tablet extended release 24 hr 300 mg PO QAM Qty: 90 1RF sertraline 50 mg tablet 50 mg PO DAILY Qty: 90 1RF epinephrine [EpiPen 2-Tacos] 0.3 mg/0.3 mL auto-injector 0.3 mg IM ONCE PRN (Reason: anaphylaxis) Qty: 1 0RF Rx Instructions: as a single dose Discharge Instructions Additional Instructions: Oxycodone is for severe pain and is category B (animal studies have seemed safe however no adequate human studies have been performed) . There is a small risk of labor, as well as a risk of respiratory depression and withdrawal in the with consistent use. If your pain becomes intolerable at home you can take the single dose you were given. Please also taken tylenol as you have been. You can also use ice and heat if they are helping. Call your [employer] DISPLA[employer] SALESPERSON and ENT Monday to schedule appointments for as soon as possible to followup on your visit here. Please also call your primary care doctor in the morning to schedule an appointment for within the next 72 hours to followup on your visit. At these visits discuss your symptoms and how to best control your pain going forward. Return to the emergency department for new or worsening symptoms including if your pain changes in character or location or worsens, you develop a fever, chest pain, difficultly breathing, difficulty swallowing, or if you have any other concerns. Stand Alone Forms: Work Release HPI General Mode of arrival: ambulatory . Date/Time Provider Initiated Documentation: 05/25/25 01:13 . Limitations to Documentation: no limitations . Information obtained by: patient, family and old records reviewed (ED visit 05/01) . HPI Narrative: 34yo F with hx of Tetralogy of Fallot (s/p repair), hypothyroid, currently 30w gestation presenting with chronic right jaw pain. Seen in this ED on 05/01 for same and has had outpatient followup with concern for possible TMJ issues and has seen her PCP, endontist, and ENT with MRI scheduled for 06/04. Had been using topical diclofenic but had to dc as she is now over 30 weeks gestation. Taking tylenol for pain with some improvement. Pain is aching, severe, and radiates from her right jaw to her maxilla and lutheran; she has associated numbness/tingling to her right chin and lips. Symptoms are entirely unchanged in character, however lasted longer tonight. They typically come on quickly and last a little over an hour; has now been ongoing for about two hours. The pain is starting to wane and is less severe than when she decided to come in; she states she regrets coming and would not have made the decision to come in tonight if her pain was at is the level it is currently. She is otherwise in her usual state of health with no fevers, chills, rash, headache, neck pain, dental pain, numbness/tingling elsewhere, weakness, vision changes, vertigo, difficutly swallowing, chest pain, shortness of breath, lightheadeness, palpi tations, or other concerns. Related Data Home Medications ?Medication ?Instructions ?Recorded ?Confirmed epinephrine 0.3 mg/0.3 mL 0.3 mg (0.3 mL) IM ONCE PRN 08/22/20 05/25/25 injection, auto-injector (EpiPen anaphylaxis #1 ea 2-Tacos) loratadine 10 mg tablet (Claritin) 10 mg PO DAILY 02/0605/25/25 bupropion HCl 300 mg 24 hr tablet, 300 mg PO QAM #90 t abs 12/09/24 05/25/25 extended release sertraline 50 mg tablet 50 mg PO DAILY #90 tabs 12/2905/25/25 docosahexaenoic acid 200 mg 200 mg PO DAILY 01/13/25 1 capsule ( DHA) docusate sodium 100 mg capsule 100 mg PO DAILY 5 05/25/25 (Colace) Previous Rx's ?Medication ?Instructions ?Recorded epinephrine 0.3 mg/0.3 mL 0.3 mg (0.3 mL) IM ONCE PRN 08/22/20 injection, auto-injector (EpiPen anaphylaxis #1 ea 2-Tacos) bupropion HCl 300 mg 24 hr tablet, 300 mg PO QAM #90 t abs 12/09/24 extended release sertraline 50 mg tablet 50 mg PO DAILY #90 tabs 12/29 Allergies Allergy/AdvReac Type Severity Reaction Status Date / Time unknown Allergy Severe Anaphylaxis Uncoded 05/22/25 10:05 cats Allergy Mild Other (See Uncoded 05/22/25 10:05 Comment) General MIREYA: 4 Review of Systems Narrative: see HPI Exam Narrative Exam Narrative: General: Alert, well appearing, well nourished, in no acute distress. Head: Normocephalic, atraumatic. No temporal tenderness. Neck: Trachea midline, ?Neck supple. ENT: ?MMM.? TM's clear. No oropharygeal lesions or exudate. No intraoral lesions or abscesses. Teeth nontender to percussion. No trismus. No mastoid tenderness. Cardiac: ?RRR, + murmur. Good peripheral pulses. Brisk capillary refill. Resp: No respiratory distress. CTAB. Abd: ?Non-distended Extremities: ?No deformities.? No peripheral edema. Neurologic: GCS 15. ? Moves all extremities freely against gravity Medical Decision Making 34yo F with hx of Tetralogy of Fallot (s/p repair), hypothyroid, currently 30w gestation presenting with chronic right jaw pain. Seen in this ED on 05/01 for same and has had outpatient followup with concern for possible TMJ issues and has seen her PCP, endontist, and ENT with MRI scheduled for 06/04. ED visit note and workup reviewed. Limited options for pain control given 3rd trimester . Presents tonight for pain flare lasting longer than usual, though it is now waning. Vital signs and physical exam reassuring on arrival. History and exam not suggestive of ACS, dental abscess, giant cell arteritis, deep space neck infection, Mati's, Vincent's angina, trauma/fracture/dislocation, mastoiditis, carotid pathology. Given the chronic and largely unchanged nature of her symptoms (aside from duration of pain today) and improving symptoms on arrival I do not feel there is much emergent workup indicated in the ED today (i.e EKG, labs, repeat imaging) and patient is in agreement and feels comfortable forgoing this. Given the severity of her pain when it flares and her otherwise limited options in , offered single dose of oxycodone 5mg to take home should severe pain return over the weekend before she is able to see her outpatient providers. I discussed with her implications for (category B, some suggestion of implication in labor, respiratory depression of the , HERB) and that I feel a single dose is not an unreasonable pain; she would like to proceed with this. She is aware she will need to followup with her outpatient providers for further pain management. Discharged home; discharge instructions and return precautions were reviewed with patient who verbalized understanding. All questions were answered and she is in full agreement with the plan. [facility] All Active Problems (Updated 05/25/25 @ 03:23 by Anu Mckenzie MD) Currently (Acute) Jaw pain (Acute) Breast lump on right side at 12 o'clock position (Acute) Jaw pain (Acute) Adult congenital heart disease (Acute) [facility] Cardio 04/08/25 Previous section (Chronic) Tetralogy of Fallot s/p repair (Acute) Heart murmur (Acute) Varicella zoster (Acute 08/16/17) outbreak treated w/ acyclovir 5x/d , Recurrence 12/2024 Depression (Chronic) History of exposure to cat feces (Acute) (Acute) Bleeding in early (Acute) Depression affecting , (Acute) Attention deficit disorder (ADD) in adult (Acute) Medical History (Updated 05/25/25 @ 03:23 by Anu Mckenzie MD) Pulmonic valve regurgitation Premature ventricular contraction Tricuspid regurgitation Cellulitis right leg with edema. one episode after a cut and one spontaneous and associated with foot pain Hypothyroidism Alopecia areata (02/01/17) Seborrheic dermatitis (02/01/17) Atopic dermatitis 11/13/23 DERM Eczema (11/30/16) Rash and nonspecific skin eruption Macular per exam ... Hx some raised areas, off/on. 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 Rosacea Multiple nevi Dermal nevus of cheek 05/09/[address] Yao, [facility] Derm left cheek, History of shingles Tetralogy of Fallot (11/30/16) 11/13/23 Cardiolgy Dog bite Anaphylactic reaction Unclear cause; refer to [facility] Allergy Ocular migraine x1 Adjustment disorder, unspecified (02/02/17) Surgical History (Updated 01/15/25 @ 08:33 by Yulissa Orlando CNM) H/O tetralogy of Fallot repair (12/21/16) valve-sparing surgical repair w/ pulmonary valvotomy, infundibular resection and RVOT patch 1991 [facility] cardiac surgery for tetrology of fallot (11/10/92) [facility] section (01/10/18) SILVER. Rafi Montes. Breech s/p unsuccessful ECV. Family History (Updated 01/13/25 @ 10:55 by Yulissa Orlando CNM) Mother Diabetes Type II Essential hypertension Depression Mental disorder Depression Father Diabetes Essential hypertension CAD (coronary artery disease) Arthritis Depression Hyperlipidemia Mental disorder Depression Myopathy Atrial flutter Paternal Uncle Neoplasm Lung Brother Arthritis Social History Smoking/Tobacco Use Status: Never Smoking risk assessment performed?: Yes Alcohol Intake: current Alcohol Intake frequency: holidays/special occasions only Drug use: Never Substance use type: does not use Number of Children: 1 current occupation: [employer] Do you feel safe at home: Yes Do you feel safe in your relationship?: Yes Female Reproductive History Menstrual Age of Menarche: 13 control method: progestin IUCD History History 4 Para 2 Hx # Term Pregnancies 2 Multiple births 0 Hx # Pregnancies 0 Ectopic pregnancies 0 AB induced 0 Hx Number of Living Children 2 AB spontaneous 1 Past Pregnancies Del. Date GA/Weeks # Preg Succ Route Wgt Sex Labor Lgth Anesth esia Location [facility] Complic 01/10/18 39 No 3260.195 g Male [facility] c/s [facility] dr[facility] donaldson 07/24/20 40 No vaginal 2993.71 g Male [facility] Delivery Date: 01/10/18 Last Updated by: Mishel Lr CNM failed ecv for breech. Delivery Date: 07/24/20 Last Updated by: Nichole Varghese LPN with vacuum assist due to NRFHT;
== END 2025-05-25 01:50 | disposition home or self-care (01) ==
PROVIDERS: Emergency Provider Student in an Organized Health Care Education/Training Program; PCP Nurse Practitioner
DX: R68.84 Jaw pain (principal); Z3A.30 30 weeks gestation of pregnancy
CPT/HCPCS: 99282 ×2

== ENCOUNTER 2025-06-03 20:06 | Outpatient (CLI) | payer BC, SELFPAY ==
[2025-06-03 20:45] VITALS: BP 106/65; PULSE 75; RESP 18
[2025-06-03 21:00] VITALS: BP 106/65; PULSE 75; RESP 18
--- NOTE | 2025-06-03 21:49 | W.OBNST ---
Date of service: 06/03/25 Time of Service: 21:49 NST Evaluation Reason for NST Reasons for Nonstress Test: DECREASED MOVEMENT Gestational Age Gestational Age in Weeks and Days: 31 Weeks and 6Days Test and Monitor Explained Test/Monitor Explained: Test Explained and Patient Verbalized Understanding Vital Signs Blood Pressure: 106/65 Pulse: 75 NST Information Date on Monitor: 06/03/25 Time on Monitor: 20:40 Date off Monitor: 06/03/25 Time off Monitor: 21:15 Total Time on Monitor: 35 NST Interventions: None NST Evaluation Patient States Movement: Present FHR Baseline: 150 Variability: Moderate 6-25 bpm Accelerations: 15x15 Decelerations: None NST Results: Reactive Note Ultrasound Done: N/A. NST Note Note: Glenny called and reported decreased movement this evening. She came in for NST. baby was very active and reactive NST. NST Reviewed and Verified by: Yulissa Orlando
[2025-06-03 21:50] VITALS: BP 106/65; PULSE 75
[2025-06-04 11:52] VITALS: BP 141/72; PULSE 112
== END 2025-06-03 21:15 ==
LOC: BCD 20:25 → OBS 20:29
PROVIDERS: PCP Nurse Practitioner; Visit Provider Advanced Practice Midwife
DX: O36.8131 Decreased fetal movements, third trimester, fetus 1 (principal); Z3A.31 31 weeks gestation of pregnancy
CPT/HCPCS: 59025

== ENCOUNTER 2025-07-06 00:25 | Inpatient (IN) | payer BC, SELFPAY ==
[2025-07-05 23:38] VITALS: BP 128/81; PULSE 83
[2025-07-05 23:40] LABS: Abs Immature Grans 0.04 10^3/uL (0.0-0.06); HCT 32.9 % (36.0-46.0); HGB 10.5 g/dL (11.2-15.7); Immature Grans % 0.5 %; MCH 28.8 pg (27.0-33.0); MCHC 31.9 % (32.0-36.0); MCV 90 fL (80-95); MPV 11.1 fL (8.0-11.0); Platelet Count 255 10^3/uL (130-400); RBC 3.65 10^6/uL (3.93-5.22); RDW 14.0 % (11.7-14.6); RDW-SD 45.7 fL; WBC 8.70 10^3/uL (4.4-10.8)
[2025-07-05 23:52] VITALS: BP 128/81; PULSE 83
[2025-07-06] VITALS (10 sets, daily range): BP systolic 108–128; BP diastolic 57–81; PULSE 67–88; RESP 17–18; TEMP 37–37.1; O2SAT 99
[2025-07-06 00:04] LABS: ALT 24 U/L (10-49); AST 37 U/L (<34); Albumin 3.7 g/dL (3.2-5.0); Alkaline Phosphatase 180 U/L (46-116); Anion Gap 10 mmol/L (3-11); BUN 13 mg/dL (9-23); Bilirubin, Total 0.40 mg/dL (0.2-1.2); CO2 22.0 mmol/L (20.0-31.0); Calcium 8.9 mg/dL (8.3-10.6); Chloride 108 mmol/L (98-107); Glucose 85 mg/dL (74-106); Potassium 4.3 mmol/L (3.5-5.1); Sodium 140 mmol/L (136-145); Total Protein 6.2 g/dL (5.7-8.2)
[2025-07-06 00:17] LABS: Prot/Crea Ur Ratio 0.09 mg/mg Cr
[2025-07-06] MEDS: Acetaminophen 500 MG TAB PO (00:17)
--- NOTE | 2025-07-06 00:31 | W.PM.OBHPL1 ---
Date of service: 07/06/25 Time of Service: 00:31 Assessment and Plan Assessment and plan (1) Preeclampsia: Status: Acute Assessment and plan: Consult with Dr. Borrero who recommends [place] [facility] [place]. Discussed with Glenny and she agrees. Transfer center was contacted to arrange transfer and Dr Chandra accepted her transport. Nursing specialty food products supervisor was called andtransport will be arranged. . OB-HPI Labor/Delivery History of Present Illness Reason for Visit: preeclampsia Chief Complaint: Other (headache and elevated BP at work, edema). EMERALD Calculator Estimated Delivery Date Method Current WG Current Estimate 07/30/25 Ultrasound #2 36w 4d Other Estimates 07/12/25 LMP (Uncertain) 39w 1d 08/01/25 Ultrasound #1 36w 2d Comments: Glenny presented to the ED with complaint of headache and elevated BP taken at work this evening. BP was elevated in the ED and she was sent to the center for evaluation. BP on arrival was 128/81. Delivery is planned with IOL at [facility] at 39 weeks. History of Present Expected Delivery Route/Plan Desires - CNM, delivery @ [facility] FOB/ - Wai Jones ( 3rd child together) BG Specific Issues/Plan 1. Prior section, at [facility] (Vacuum assisted due to FHR pattern) 2. H/O tetralogy of fallot w/ repair, Both sons had murmur at , 2a. Level 2 US at [facility]- normal anatomy w/echogenic intracardiac foci, echo- WNL , 32 wk grth US sched'ed @ [facility] 2b. Echo 11/2023- mild tricuspid regurgitation , repeat echocardiogram ordered at [facility]- WNL 2c. Zio patch 11/2023- PVCs , telemetry in labor discussed at [facility] consult. 2d. 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 Re: delivery at [facility] - anesthesia consult reviewed cardiology notes 04/08 which state delivery at level 1 facility is not recommended. Pt aware, will plan TOLAC @ [facility] 3. Spinal headache with first delivery and History of tetralogy of fallot, will deliver @ [facility] 4. Conceived with Deborah in place, removed 11/2024. 5. Shingles 11/2024 6. 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 depression and ADHD - treatment with sertraline and bupropion 8. CfDNA - low risk, CF previously neg, Declines AFP 9. Right jaw pain and numbness. Saw dentist who recommended bite guard and tylenol. 9a. Trigeminal nerve pain - treated with gabapentin and oxycodone. Assessment: History Reviewed & Current Informed Consent Informed Consent: Risk,Benefits,Alternatives Discussed (transfer [place] [facility]) [facility] All Active Problems (Updated 07/06/25 @ 00:36 by Yulissa Orlanod CNM) Preeclampsia (Acute) Lactating adenoma of breast (Acute) Breast lump on right side at 12 o'clock position (Acute) Adult congenital heart disease (Acute) [facility] Cardio 04/08/25 Previous section (Chronic) Tetralogy of Fallot s/p repair (Acute) Heart murmur (Acute) Varicella zoster (Acute 08/16/17) outbreak treated w/ acyclovir 5x/d , Recurrence 12/2024 Depression (Chronic) History of exposure to cat feces (Acute) (Acute) Bleeding in early (Acute) Depression affecting , (Acute) Attention deficit disorder (ADD) in adult (Acute) Medical History (Updated 07/06/25 @ 00:36 by Yulissa Orlando CNM) Pulmonic valve regurgitation Premature ventricular contraction Tricuspid regurgitation Cellulitis right leg with edema. one episode after a cut and one spontaneous and associated with foot pain Hypothyroidism Alopecia areata (02/01/17) Seborrheic dermatitis (02/01/17) Atopic dermatitis 11/13/23 DERM Eczema (11/30/16) Rash and nonspecific skin eruption Macular per exam ... Hx some raised areas, off/on. 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 Rosacea Multiple nevi Dermal nevus of cheek 05/09/[address] Yao, [facility] Derm left cheek, History of shingles Tetralogy of Fallot (11/30/16) 11/13/23 Cardiolgy Dog bite Anaphylactic reaction Unclear cause; refer to [facility] Allergy Ocular migraine x1 Adjustment disorder, unspecified (02/02/17) Surgical History (Updated 01/15/25 @ 08:33 by Yulissa Orlando CNM) H/O tetralogy of Fallot repair (12/21/16) valve-sparing surgical repair w/ pulmonary valvotomy, infundibular resection and RVOT patch 1991 [facility] cardiac surgery for tetrology of fallot (11/10/92) [facility] section (01/10/18) LTCS. Rafi Montes. Breech s/p unsuccessful ECV. Family History (Updated 01/13/25 @ 10:55 by Yulissa Orlando CNM) Mother Diabetes Type II Essential hypertension Depression Mental disorder Depression Father Diabetes Essential hypertension CAD (coronary artery disease) Arthritis Depression Hyperlipidemia Mental disorder Depression Myopathy Atrial flutter Paternal Uncle Neoplasm Lung Brother Arthritis Social History Smoking/Tobacco Use Status: Never Smoking risk assessment performed?: Yes Alcohol Intake: current Alcohol Intake frequency: holidays/special occasions only Drug use: Never Substance use type: does not use Number of Children: 1 current occupation: [employer] Do you feel safe at home: Yes Do you feel safe in your relationship?: Yes Female Reproductive History Menstrual Age of Menarche: 13 control method: progestin IUCD History History 4 Para 2 Hx # Term Pregnancies 2 Multiple births 0 Hx # Pregnancies 0 Ectopic pregnancies 0 AB induced 0 Hx Number of Living Children 2 AB spontaneous 1 Past Pregnancies Del. Date GA/Weeks # Preg Succ Route Wgt Sex Labor Lgth Anesthesia Location Prov Complic 01/10/18 39 No 7 lb 3 oz Male [facility] c/s [facility] dr[facility] donaldson 07/24/20 40 No vaginal 6 lb 9.6 oz Male [facility] Delivery Date: 01/10/18 Last Updated by: Mishel Lr CNM failed ecv for breech. Delivery Date: 07/24/20 Last Updated by: Nichole Varghese LPN with vacuum assist due to NRFHT; Meds Allergies and Home Medications Allergies Allergy/AdvReac Type Severity Reaction Status Date / Time unknown Allergy Severe Anaphylaxis Uncoded 06/18/25 10:45 cats Allergy Mild Other (See Uncoded 06/18/25 10:45 Comment) Home Medications ?Medication ?Instructions ?Recorded ?Confirmed ?Type epinephrine 0.3 mg/0.3 mL 0.3 mg (0.3 mL) IM ONCE PRN 08/22/20 06/18/25 Rx injection, auto-injector (EpiPen anaphylaxis #1 ea 2-Tacos) loratadine 10 mg tablet (Claritin) 10 mg PO DAILY 03/06/24 06/18/25 History docosahexaenoic acid 200 mg 200 mg PO DAILY 01/13/25 06/18/25 History capsule ( DHA) docusate sodium 100 mg capsule 100 mg PO DAILY 01/13/25 06/18/25 History (Colace) bupropion HCl 300 mg 24 hr tablet, 300 mg PO QAM #90 tabs 05/27/25 06/18/25 Rx extended release sertraline 50 mg tablet 50 mg PO DAILY #90 tabs 05/27/25 06/18/25 Rx gabapentin 100 mg capsule 100 mg PO DAILY 06/04/25 06/18/25 History Exam Physical Exam Vital signs: Pulse BP 83 128/81 07/05/25 23:38 07/05/25 23:38 Vital Signs Reviewed: Yes Constitutional Constitutional: no acute distress Detailed Labor and Delivery Exam station: 0 Cervix position: posterior Consistency: soft Chen Score: Cervical Points Exam 0 1 2 3 Dilation Closed 1-2cm 3-4 cm 5-6cm Effacement 0-30% 40-50% 60-70% 80% Consistency Firm Medium Soft Station -3 -2 -1,0 +1,+2 Position Posterior Mid Anterior Monitor Mode: External Contraction Frequency(min): irregular Contraction Duration(sec): 40-60 Contraction Intensity: Mild Comments: Unable to reach cervix. Baby at 0 station and cervix very posterior. Fetus A Heart Rate Baseline: 140 Monitor Accelerations: 15 X 15 Monitor Decelerations: None Variability: Moderate (6-25 BPM) Presentation: Cephalic Categories: Category I Est. Weight: 6 lb HEENT Exam HEENT Exam: Normal Respiratory Exam Respiratory Exam: Normal Cardiovascular Exam Cardiovascular Exam: Normal Abdominal Exam Abdominal Exam: Normal Exam Exam: Normal Extremities Exam Extremities Exam: Abnormal (1+ pitting edema, reflexes 2 +) Skin Exam Skin Exam: Normal Psychiatric Exam Psychiatric Exam: Normal Results Abnormal Lab Findings: Abnormal Labs 07/05/25 07/05/25 23:10 23:30 RBC 3.65 L Hgb 10.5 L Hct 32.9 L MCHC 31.9 L MPV 11.1 H Absolute Monocytes 0.82 H Chloride 108 H Creatinine 1.05 H AST 37 H Alkaline Phosphatase 180 H U Random Total Protein 42.5 H Risk Assessment Risk for Shoulder Dystocia Historical/Initial OB: NEGATIVE FOR: Pelvic Abnormality, Pre- BMI>30, Previous Shoulder Dystocia or Previous Macrosomia 36 Weeks: NEGATIVE FOR: Current Gestational DM, EFW>4500gms or Maternal Weight Gain>40lbs Risk for Pre-Eclampsia Yes, if one or more: NEGATIVE FOR: Hx Pre-E/Gest HTN, Chronic HTN, Multiple Gestation, Pre-gestational DM, Renal Disease, Systemic Lupus or APA Syndrome Yes, if 2 or more: NEGATIVE FOR: Nulliparity, Age>= 35 yrs, >10yr btwn pregnancies, BMI>30, ethinicty, Mother/Sister w/ Pre-E or Previous IUGR Risk for Post- Hemorrhage Initial: POSITIVE FOR: Anticoagulation; NEGATIVE FOR: Multiple Gestation, Previous PPH, Known Clotting Deficiency or Grand Multiparity 36 Weeks: NEGATIVE FOR: Anemia, hgb<10, Low platelets(thrombocytopenia), Gestational HTN or Pre-E, Polyhydraminios or EFW>4500gms Risks Reviewed Risks Reviewed Upon Admission: Yes
[2025-07-06 00:40] LABS: LDH 315 U/L (120-246); Uric Acid 6.9 mg/dL (3.1-7.8)
[2025-07-06] MEDS: Lactated Ringers 1,000 ML 125 ML IV (00:58)
[2025-07-06] MEDS: Calcium Carbonate *TUMS* 500 MG CHEW 1000 MG PO (00:58)
--- NOTE | 2025-07-06 02:39 | W.PM.OBNL1 ---
Date of service: 07/06/25 Time of Service: 02:39 Informed Consent Informed Consent: Risk,Benefits,Alternatives Discussed (transfer to [facility]) Contractions Monitor Mode: External Contraction Frequency(min): irregular Contraction Duration(sec): 50-60 Intensity: Mild Fetus A Monitor: External (US) Heart Rate Baseline: 140 Variability: Moderate (6-25 BPM) Categories: Category I Accelerations: 15 X 15 Decelerations: None Amniotic Membrane Status: Intact Assessment and Plan Assessment and plan (1) Preeclampsia: Status: Acute Assessment and plan: Will plan to observe Glenny until an ambulance transfer is possible at 0730. Plan reviewed with Dr. Borrero who agrees Objective Abnormal lab results 07/05/25 07/05/25 Range/Units 23:10 23:30 RBC 3.65 L (3.93-5.22) 10^6/uL Hgb 10.5 L (11.2-15.7) g/dL Hct 32.9 L (36.0-46.0) % MCHC 31.9 L (32.0-36.0) % MPV 11.1 H (8.0-11.0) fL Absolute Monocytes 0.82 H (0.1-0.8) 10^3/uL Chloride 108 H (98-107) mmol/L Creatinine 1.05 H (0.55-1.02) mg/dL AST 37 H (<34) U/L Alkaline Phosphatase 180 H (46-116) U/L Lactate Dehydrogenase 315 H (120-246) U/L U Random Total Protein 42.5 H (1.0-14.0) mg/dL Temp Pulse BP 98.6 F 71 122/57 L 07/06/25 00:33 07/06/25 02:04 07/06/25 02:04 Laboratory Results WBC 8.70 10^3/uL (4.4-10.8) 07/05/25 23:30 RBC 3.65 10^6/uL (3.93-5.22) L 07/05/25 23:30 Hgb 10.5 g/dL (11.2-15.7) L 07/05/25 23:30 Hct 32.9 % (36.0-46.0) L 07/05/25 23:30 MCV 90 fL (80-95) 07/05/25 23:30 MCH 28.8 pg (27.0-33.0) 07/05/25 23: MCHC 31.9 % (32.0-36.0) L 07/05/25 23: RDW 14.0 % (11.7-14.6) 07/05/25 23:30 Plt Count 255 10^3/uL (130-400) 07/05/25 23: MPV 11.1 fL (8.0-11.0) H 07/05/25 23: Immature Gran % 0.5 % 07/05/25 23: Neutrophils % 70.3 % 07/05/25 23: Lymphocytes % 17.9 % 07/05/25 23: Monocytes % 9.4 % 07/05/25 23: Eosinophils % 1.7 % 07/05/25 23: Basophils % 0.2 % 07/05/25 23: Nucleated RBC % 0.0 % (0.0-0.3) 07/05/25 23: Absolute Neutrophils 6.11 10^3/uL (1.2-6.7) 07/05/25 23: Absolute Lymphocytes 1.56 10^3/uL (1.2-3.4) 07/05/25 23: Absolute Monocytes 0.82 10^3/uL (0.1-0.8) H 07/05/25 23: Absolute Eosinophils 0.15 10^3/uL (0.0-0.7) 07/05/25 23: Absolute Basophils 0.02 10^3/uL (0.0-0.2) 07/05/25 23:30 Sodium 140 mmol/L (136-145) 07/05/25 23:30 Potassium 4.3 mmol/L (3.5-5.1) 07/05/25 23: Chloride 108 mmol/L (98-107) H 07/05/25 23:30 Carbon Dioxide 22.0 mmol/L (20.0-31.0) 07/05/25 23:30 Anion Gap 10 mmol/L (3-11) 07/05/25 23:30 BUN 13 mg/dL (9-23) 07/05/25 23:30 Creatinine 1.05 mg/dL (0.55-1.02) H 07/05/25 23:30 Est GFR (CKD-EPI 2020) 60.11 (mL/min/1.73m2) 07/05/25 23:30 Glucose 85 mg/dL (74-106) 07/05/25 23:30 Uric Acid 6.9 mg/dL (3.1-7.8) 07/05/25 23:10 Calcium 8.9 mg/dL (8.3-10.6) 07/05/25 23:30 Total Bilirubin 0.40 mg/dL (0.2-1.2) 07/05/25 23:30 AST 37 U/L (<34) H 07/05/25 23:30 ALT 24 U/L (10-49) 07/05/25 23:30 Alkaline Phosphatase 180 U/L (46-116) H 07/05/25 23:30 Lactate Dehydrogenase 315 U/L (120-246) H 07/05/25 23:10 Total Protein 6.2 g/dL (5.7-8.2) 07/05/25 23:30 Albumin 3.7 g/dL (3.2-5.0) 07/05/25 23:30 Ur Random Creatinine 433.60 mg/dL 07/05/25 23:10 U Random Total Protein 42.5 mg/dL (1.0-14.0) H 07/05/25 23:10 U [place] Prot/Creat Ratio 0.09 mg/mg Cr 07/05/25 23:10 Add-On Test Request done 07/06/25 23:10 Subjective Patient Reports: No new Complaints Interval history since last seen: Transfer accepted at [facility] but no ambulance available at this time and [facility] will be available at 0730. Results Hemoglobin/Hematocrit: Hgb 10.5 g/dL (11.2-15.7) L 07/05/25 23:30 Hct 32.9 % (36.0-46.0) L 07/05/25 23:30 Abnormal Lab Findings: Abnormal Labs 07/05/25 07/05/25 23:10 23:30 RBC 3.65 L Hgb 10.5 L Hct 32.9 L MCHC 31.9 L MPV 11.1 H Absolute Monocytes 0.82 H Chloride 108 H Creatinine 1.05 H AST 37 H Alkaline Phosphatase 180 H Lactate Dehydrogenase 315 H U Random Total Protein 42.5 H
--- NOTE | 2025-07-06 07:29 | DSE_ITS ---
Date of service: 07/06/25 Time of Service: 07:29 DS: Diagnosis Discharge Diagnosis (1) Preeclampsia: Status: Acute Asessment and Plan: B.P 118/62. monitor tracing category 1 with occasional contractions. Transfer to [facility] [place] by ambulance for further evaluation. Discharge Plan Disposition Patient Disposition: Transfer-Acute Inpatient Care Specific Acute Inpt Facility: [facility] Condition: Good Discharge Details Reason For Visit: preeclampsia Admit Date/Time: 07/06/25 00:25 Admit Provider: Yulissa Orlando Attending Provider: Yulissa Orlando Primary Care Provider: Consuelo Abebe Home Meds and New Rx's Prescriptions: No Action docusate sodium [Colace] 100 mg capsule 100 mg PO DAILY DHA 200 mg capsule 200 mg PO DAILY gabapentin 100 mg capsule 100 mg PO DAILY loratadine [Claritin] 10 mg tablet 10 mg PO DAILY bupropion HCl 300 mg tablet extended release 24 hr 300 mg PO QAM Qty: 90 1RF sertraline 50 mg tablet 50 mg PO DAILY Qty: 90 1RF epinephrine [EpiPen 2-Tacos] 0.3 mg/0.3 mL auto-injector 0.3 mg IM ONCE PRN (Reason: anaphylaxis) Qty: 1 0RF Rx Instructions: as a single dose Discharge Instructions Activity:: Activity as Tolerated Equipment/Supplies:: No Equipment Needed Diet:: As Tolerated Discharge Orders Discharge Orders: Discharge Order (Routine); Ordered 07/06/25 Ordered By: Yulissa Orlando DS: Summary Time Spent with Patient providing and/or coordinating discharge services: Less than 30 minutes Status at Discharge Functional status at discharge: independent ambulation Overall status at discharge: patient is not back to baseline Mental Status: mental status grossly normal Speech and Movement: speech and movement normal Mood: congruent mood Affect: normal affect Exam Narrative Exam Narrative: Glenny attempted to rest. Headache comes and goes but is still present. She denies visual changes or upper right quadrant pain. Const General: cooperative Orientation: alert Limitations: mental status not altered HENMT Head: normal to inspection Neck Thyroid: thyroid normal Resp Effort & Inspection: normal respiratory effort Auscultation: clear to auscultation bilaterally Cardio Rate: regular rate Rhythm: regular rhythm Heart Sounds: no murmurs GI Palpation: soft and nontender External Female Exam: normal external appearance Skin General skin exam: no rashes or lesions noted Extrem General: pedal edema (right greater than left) on the right Right lower extremity: edema (right greater than left) Details: pitting and 1+ Psych Mental Status: mental status grossly normal Speech and Movement: speech and movement normal Mood: congruent mood Affect: normal affect DS: Data Vitals/I&O Vitals and I&O: Vital Signs Temperature 98.6 F 07/06/25 07:17 Temperature Source Oral 07/06/25 07:17 Pulse 67 07/06/25 07:25 Pulse 83 07/05/25 23:52 Respiratory Rate 17 07/06/25 07:17 Respiratory Depth Normal 07/06/25 03:07 Blood Pressure 124/73 07/06/25 07:23 Blood Pressure 128/81 07/05/25 23:52 Blood Pressure Mean 80 07/06/25 07:17 Intake & Output 07/05/25 07/05/25 07/06/25 11:59 23:59 11:59 Weight 170 lb Other: Urine Color Yellow Data Completed and Pending Pending Labs at Discharge: 07/05/25 07/05/25 07/06/25 23:10 23:30 23:10 WBC 8.70 RBC 3.65 L Hgb 10.5 L Hct 32.9 L MCV 90 MCH 28.8 MCHC 31.9 L RDW 14.0 Plt Count 255 MPV 11.1 H Immature Gran % 0.5 Neutrophils % 70.3 Lymphocytes % 17.9 Monocytes % 9.4 Eosinophils % 1.7 Basophils % 0.2 Nucleated RBC % 0.0 Absolute Neutrophils 6.11 Absolute Lymphocytes 1.56 Absolute Monocytes 0.82 H Absolute Eosinophils 0.15 Absolute Basophils 0.02 Sodium 140 Potassium 4.3 Chloride 108 H Carbon Dioxide 22.0 Anion Gap 10 BUN 13 Creatinine 1.05 H Est GFR (CKD-EPI 2020) 60.11 Glucose 85 Uric Acid 6.9 Calcium 8.9 Total Bilirubin 0.40 AST 37 H ALT 24 Alkaline Phosphatase 180 H Lactate Dehydrogenase 315 H Total Protein 6.2 Albumin 3.7 Ur Random Creatinine 433.60 U Random Total Protein 42.5 H U [place] Prot/Creat Ratio 0.09 Add-On Test Request done PFSH All Active Problems (Updated 07/06/25 @ 00:36 by Yulissa Orlando CNM) Preeclampsia (Acute) Lactating adenoma of breast (Acute) Breast lump on right side at 12 o'clock position (Acute) Adult congenital heart disease (Acute) [facility] [place] Cardio 04/08/25 Previous section (Chronic) Tetralogy of Fallot s/p repair (Acute) Heart murmur (Acute) Varicella zoster (Acute 08/16/17) outbreak treated w/ acyclovir 5x/d , Recurrence 12/2024 Depression (Chronic) History of exposure to cat feces (Acute) (Acute) Bleeding in early (Acute) Depression affecting , (Acute) Attention deficit disorder (ADD) in adult (Acute) Medical History (Updated 07/06/25 @ 00:36 by Yulissa Orlando CNM) Pulmonic valve regurgitation Premature ventricular contraction Tricuspid regurgitation Cellulitis right leg with edema. one episode after a cut and one spontaneous and associated with foot pain Hypothyroidism Alopecia areata (02/01/17) Seborrheic dermatitis (02/01/17) Atopic dermatitis 11/13/23 DERM Eczema (11/30/16) Rash and nonspecific skin eruption Macular per exam ... Hx some raised areas, off/on. Shifting sleep-work schedule Works @ [employer] with 2nd shift work @ times Rosacea Multiple nevi Dermal nevus of cheek 05/09/[address] Yao, [facility] [place] Derm left cheek, History of shingles Tetralogy of Fallot (11/30/16) 11/13/23 Cardiolgy Dog bite Anaphylactic reaction Unclear cause; refer to [facility] [place] Allergy Ocular migraine x1 Adjustment disorder, unspecified (02/02/17) Surgical History (Updated 01/15/25 @ 08:33 by Yulissa Orlando CNM) H/O tetralogy of Fallot repair (12/21/16) valve-sparing surgical repair w/ pulmonary valvotomy, infundibular resection and RVOT patch 1991 [facility] cardiac surgery for tetrology of fallot (11/10/92) [facility] section (01/10/18) LTCS. Rafi Montes. Breech s/p unsuccessful ECV. Family History (Updated 01/13/25 @ 10:55 by Yulissa Orlando CNM) Mother Diabetes Type II Essential hypertension Depression Mental disorder Depression Father Diabetes Essential hypertension CAD (coronary artery disease) Arthritis Depression Hyperlipidemia Mental disorder Depression Myopathy Atrial flutter Paternal Uncle Neoplasm Lung Brother Arthritis Social History Smoking/Tobacco Use Status: Never Smoking risk assessment performed?: Yes Alcohol Intake: current Alcohol Intake frequency: holidays/special occasions only Drug use: Never Substance use type: does not use Housing: house Number of Children: 1 current occupation: [employer] Do you feel safe at home: Yes Do you feel safe in your relationship?: Yes Female Reproductive History Menstrual Age of Menarche: 13 control method: progestin IUCD History History 4 Para 2 Hx # Term Pregnancies 2 Multiple births 0 Hx # Pregnancies 0 Ectopic pregnancies 0 AB induced 0 Hx Number of Living Children 2 AB spontaneous 1 Past Pregnancies Del. Date GA/Weeks # Preg Succ Route Wgt Sex Labor Lgth Anesth esia Location [facility] 01/10/18 39 No 7 lb 3 oz Male [facility] donaldson 07/24/20 40 No vaginal 6 lb 9.6 oz Male [facility] Delivery Date: 01/10/18 Last Updated by: Mishel Lr CNM failed ecv for breech. Delivery Date: 07/24/20 Last Updated by: Nichole Varghese LPN with vacuum assist due to NRFHT; Time Spent with Patient Time Spent with Patient: <45 minutes Time was spent: preparing to see the patient(eg.review tests), ordering medications,tests, procedures and counseling the patient
[2025-07-06] MEDS: Acetaminophen 500 MG TAB 1000 MG PO (07:42)
--- NOTE | 2025-07-06 09:37 | PDOC.NST_ITS ---
Date of service: 07/06/25 Time of Service: 09:49 NST Evaluation Reason for NST Reasons for Nonstress Test: DECREASED MOVEMENT Gestational Age Gestational Age in Weeks and Days: 36 Weeks and 4Days Test and Monitor Explained Test/Monitor Explained: Test Explained, Monitor Explained and Patient Verbalized Understanding Vital Signs Blood Pressure: 128/81 Pulse: 83 Weight: 170 lb NST Information Date on Monitor: 07/05/25 Time on Monitor: 23:15 Date off Monitor: 07/06/25 Time off Monitor: 02:50 Total Time on Monitor: 215 NST Interventions: None Contraction Frequency: 3-6 NST Evaluation Patient States Movement: Present FHR Baseline: 135 Variability: Moderate 6-25 bpm Accelerations: 15x15 Decelerations: None NST Results: Reactive Note Ultrasound Done: N/A. NST Note Note: Glenny came to the ED after working all day and experiencing a headache and pedal edema. She took her BP at work and it was 120s/80s which she describes as elevated for her. 1 + pitting edema noted in feet, right more than left. Preecampsia labs drawn and show elevated creatinene and AST. She was admitted and transfer to [facility] was arranged. NST Reviewed and Verified by: Yulissa Orlando
== END 2025-07-06 07:47 | disposition short-term general hospital (02) | DRG 832 ==
LOC: BCD 00:29 → OBS 00:29
PROVIDERS: Admitting Provider Advanced Practice Midwife; PCP Nurse Practitioner; Visit Provider Advanced Practice Midwife
DX: O14.93 Unspecified pre-eclampsia, third trimester (principal); O99.413 Diseases of the circulatory system complicating pregnancy, third trimester; Z3A.36 36 weeks gestation of pregnancy; O99.343 Other mental disorders complicating pregnancy, third trimester; F32.A Depression, unspecified; F90.9 Attention-deficit hyperactivity disorder, unspecified type; Z87.74 Personal history of (corrected) congenital malformations of heart and circulatory system; O99.283 Endocrine, nutritional and metabolic diseases complicating pregnancy, third trimester; E03.9 Hypothyroidism, unspecified; I37.1 Nonrheumatic pulmonary valve insufficiency; I07.1 Rheumatic tricuspid insufficiency; O99.713 Diseases of the skin and subcutaneous tissue complicating pregnancy, third trimester; L71.9 Rosacea, unspecified; L20.9 Atopic dermatitis, unspecified; O34.211 Maternal care for low transverse scar from previous cesarean delivery; N85.8 Other specified noninflammatory disorders of uterus; O26.893 Other specified pregnancy related conditions, third trimester; Z20.89 Contact with and (suspected) exposure to other communicable diseases
CPT/HCPCS: 80053; 96360; 96361; 59025; 82565; 83615; 84156; 84550; 85025

== ENCOUNTER 2025-07-13 10:30 | Emergency (ER) | payer BC, SELFPAY ==
[2025-07-13] VITALS (28 sets, daily range): BP systolic 104–123; BP diastolic 56–87; PULSE 62–90; RESP 12–19; TEMP 36.6; O2SAT 95–98
--- NOTE | 2025-07-13 10:30 | RT.EKG_ITS ---
APPROVED REPORT Exam: Resting ECG Reason for Exam: chest pain Patient Location: E HR:75 bpm ECG Measurements Heart Rate 75 AXIS UT 128 P 52 QRSd 140 QRS 106 QT 396 T 35 QTc 442 Conclusion Sinus rhythm...normal P axis, V-rate 60- 99 Nonspecific intraventricular conduction delay...QRSd >115mS, not LBBB/RBBB
--- NOTE | 2025-07-13 10:43 | ED.GENADUL_ITS ---
Discharge Plan Disposition Patient Disposition: Home Discharge Details Clinical Impression: Acute pain of left shoulder Primary Care Provider: Consuelo Abebe ED Provider: Annia Manley Home Meds and New Rx's Prescriptions: No Action docusate sodium [Colace] 100 mg capsule 100 mg PO DAILY DHA 200 mg capsule 200 mg PO DAILY gabapentin 100 mg capsule 100 mg PO DAILY loratadine [Claritin] 10 mg tablet 10 mg PO DAILY bupropion HCl 300 mg tablet extended release 24 hr 300 mg PO QAM Qty: 90 1RF sertraline 50 mg tablet 50 mg PO DAILY Qty: 90 1RF epinephrine [EpiPen 2-Tacos] 0.3 mg/0.3 mL auto-injector 0.3 mg IM ONCE PRN (Reason: anaphylaxis) Qty: 1 0RF Rx Instructions: as a single dose Discharge Instructions Additional Instructions: Please follow-up tomorrow with [facility] [employer] as scheduled. Your workup today was reassuring, the cause of your acutely worsening left shoulder pain is unclear. Cardiac workup was reassuring with negative troponins and unchanged EKG. There were no acute abnormalities other than the known masses in your right breast on CTA. Your urine protein to creatinine ratio was reassuring. nonstress test and cervical exam by women's wellness was also unremarkable. Return immediately to emergency care if you develop new chest pains, difficulty breathing, abdominal pains, episodes of passing out, or if you are very worried and need to be rechecked again immediately Stand Alone Forms: Portal Information Discharge Data Discharge Date/Time-TO BE ENTERED AT DEPARTURE: 07/13/25 14:59 HPI General Date/Time Provider Initiated Documentation: 07/13/25 10:41 . HPI Narrative: Glenny is a 34-year-old female who is 37 weeks A1 who presents to the emergency department today for evaluation of left shoulder pain migrating to chest pain. She reports pain started this morning, is described as a sharp stabbing pain that radiates to the chest, does not radiate up neck or down her arm. She reports that she has had chronic left shoulder/scapula pain since April associated with this , had been managed with Tylenol and massages, but says that this is an acute worsening of her symptoms. Denies associated fever/chills, dizziness, shortness of breath, nausea/vomiting, change in p.o. intake, change in bowel or bladder function. She does have baseline lower extremity edema bilaterally (R>L) that has worsened since this . She does have a very significant complicated past medical history, including tetralogy of Fallot repair at age 2 with no residual issues, recent diagnosis with lymphoma (right breast biopsy and right axillary lymph node resection performed last week), depression. She is followed by women's wellness for routine appointments, but is under the care of [facility] obstetrics due to complexity. Related Data Home Medications ?Medication ?Instructions ?Recorded ?Confirmed epinephrine 0.3 mg/0.3 mL 0.3 mg (0.3 mL) IM ONCE PRN 08/22/20 07/13/25 injection, auto-injector (EpiPen anaphylaxis #1 ea 2-Tacos) loratadine 10 mg tablet (Claritin) 10 mg PO DAILY 02/0607/13/25 docosahexaenoic acid 200 mg 200 mg PO DAILY 01/13/25 1 09/13/24 capsule ( DHA) docusate sodium 100 mg capsule 100 mg PO DAILY 5 07/13/25 (Colace) bupropion HCl 300 mg 24 hr tablet, 300 mg PO QAM #90 t abs 05/27/25 07/13/25 extended release sertraline 50 mg tablet 50 mg PO DAILY #90 tabs 05/0807/13/25 gabapentin 100 mg capsule 100 mg PO DAILY 06/04/2502/28 Previous Rx's ?Medication ?Instructions ?Recorded epinephrine 0.3 mg/0.3 mL 0.3 mg (0.3 mL) IM ONCE PRN 08/22/20 injection, auto-injector (EpiPen anaphylaxis #1 ea 2-Tacos) bupropion HCl 300 mg 24 hr tablet, 300 mg PO QAM #90 t abs 05/27/25 extended release sertraline 50 mg tablet 50 mg PO DAILY #90 tabs 05/08 08/31 Allergies Allergy/AdvReac Type Severity Reaction Status Date / Time unknown Allergy Severe Anaphylaxis Uncoded 07/13/25 10:39 cats Allergy Mild Other (See Uncoded 07/13/25 10:39 Comment) General Stated Complaint: Chest Pain MIREYA: 3 Exam Const General: cooperative, healthy appearing, no acute distress and anxious Nutritional Appearance: average body habitus and well nourished Orientation: alert and oriented x3 [facility] Head: normal to inspection Ears: hearing grossly normal bilaterally General nose exam: external nose normal Face and sinus: normal facial exam Mouth: oral mucosae normal and other (Dry lips) Chest Chest: normal inspection of the chest and normal palpation of entire chest wall Resp Effort & Inspection: normal respiratory effort and able to speak in complete sentences Auscultation: clear to auscultation bilaterally Cardio Rate: regular rate Rhythm: regular rhythm GI Inspection: normal to inspection Palpation: soft, not firm, no guarding and nontender Other: Gravid uterus Skin General skin exam: no rashes or lesions noted Trauma: no lacerations or abrasions Neuro General: patient alert, patient oriented x3, gait normal, tone normal, moves all extremities and no focal motor deficits Cranial Nerves: facial strength normal Cognition: normal cognition Speech: speech normal Extrem General: pedal edema bilaterally non-pitting (Up to thighs) Course Vital Signs Vital signs: Vital Signs Temperature 36.6 C 07/13/25 10:32 Pulse 90 07/13/25 10:32 Respiratory Rate 18 07/13/25 10:32 Blood Pressure 118/81 07/13/25 10:32 Pulse Oximetry 98 07/13/25 10:32 Temperature 36.6 C 07/13/25 10:32 Temperature Source Oral 07/13/25 10:32 Pulse 90 07/13/25 10:32 Respiratory Rate 18 07/13/25 10:32 Blood Pressure 118/81 07/13/25 10:32 Blood Pressure Position Sitting 07/13/25 10:32 Pulse Oximetry 98 07/13/25 10:32 Oxygen Delivery Method Room Air 07/13/25 10:32 Oxygen Flow Rate 0 07/13/25 10:32 Pain Level 10 07/13/25 10:32 Medical Decision Making Glenny is a 34-year-old female who is 37 weeks A1 who presents to the emergency department today for evaluation of left shoulder pain migrating to chest pain. She reports pain started this morning, is described as a sharp stabbing pain that radiates to the chest, does not radiate up neck or down her arm. She reports that she has had chronic left shoulder/scapula pain since April associated with this , had been managed with Tylenol and massages, but says that this is an acute worsening of her symptoms. No distal numbness/tingling to left arm. Denies associated fever/chills, dizziness, shortness of breath, nausea/vomiting, change in p.o. intake, change in bowel or bladder function. She does have baseline lower extremity edema bilaterally (R>L) that has worsened since this . She does have a very significant complicated past medical history, including tetralogy of Fallot repair at age 2 with no residual issues, recent diagnosis with lymphoma (right breast biopsy and right axillary lymph node resection performed last week), depression. She is followed by women's wellness for routine appointments, but is under the care of [facility] obstetrics due to complexity. Fetus has been moving normally as expected. She plans on giving later this week. Physical exam reassuring. Glenny does appear uncomfortable, frequently repositioning during interview and exam. Easy work of breathing, lung sounds clear bilaterally. Normal heart sounds, regular rate and rhythm. Radial pulses intact bilaterally. Gravid uterus. Bilateral nonpitting edema to lower extremities up to upper thigh, no tenderness/erythema/warmth the lower extremities. DDx includes but is not limited to: PE, ACS, muscle spasm, pneumonia Discussed case with Dr. Borrero, OB. Reviewed patient presentation, medical history. She recommends CTA to rule out PE and consultation with [facility], who is managing her care. While in the emergency department Glenny received IV Dilaudid for pain control with full improvement of symptoms. I independently interpreted the following tests: EKG notable for sinus rhythm, rate 75. No changes consistent with acute ischemia. Inverted T waves unchanged from baseline.CBC shows anemia unchanged from baseline. CMP, magnesium, coags, serial troponins all unremarkable. Urine protein to creatinine ratio within normal limits. CTA chest performed to rule out PE. No acute abnormalities noted, no bony abnormalities or pulmonary emboli noted. Discussed case with Dr. Pastrana, [employer] at [facility]. As workup today very reassuring, she recommends follow-up as scheduled tomorrow in maternal- medicine unit. Unclear etiology of shoulder pain, possibly muscle spasm. Workup today overall reassuring. Reviewed discharge instructions patient, who is agreeable with plan of care to follow-up tomorrow at [facility]. Advised that she can return to emergency care anytime if she has any concerns or recurrence of pain. She voices agreement with plan of care. Imaging Data Radiologic Study: Radiologist's impression: CT CHEST PE CTA EXAM: CT CHEST PE CTA CLINICAL HISTORY: r/o PE, L shoulder pain. TECHNIQUE: Imaging Protocol: CT angiography of the chest was performed using pulmonary embolus protocol. Multi planar reconstructions were performed. CONTRAST MATERIAL: Intravenous: Omnipaque 350 Contrast volume: 80 cc COMPARISON: No exams were available for comparison FINDINGS: CHEST: PULMONARY ARTERIES: There are no intraluminal filling defects to suggest acute pulmonary emboli. LUNGS: There are no infiltrates nor evidence of pulmonary infarction.. There are no pleural effusions. No concerning lung nodules. MEDIASTINUM: There is no hilar nor mediastinal adenopathy. CARDIAC: Sternotomy wires. Heart size is upper normal. There is no pericardial effusion.Caliber of the thoracic aorta is within normal limits. No dissection. There is no significant shift of the interventricular septum. PARTIALLY VISUALIZED UPPERMOST ABDOMEN: Partially included finding which may represent OSSEOUS: No significant osseous lesions.No fractures evident.. OTHER: Asymmetric bilateral breast masses. This patient requires dedicated breast imaging follow-up. IMPRESSION: 1. No evidence of acute pulmonary emboli. No evidence of pulmonary infarc tion.No pleural effusions. 2. Bilateral breast masses, right greater than left. Correlate with clinical findings. This patient requires dedicated breast imaging. 3. Probable 3rd trimester evident in the most inferior aspect of the field of view of this chest study. 4. There are small sternotomy wires most probably related to heart surgery at a young age. PFSH All Active Problems (Updated 07/13/25 @ 14:28 by Annia Roque) Acute pain of left shoulder (Acute) Preeclampsia (Acute) Lactating adenoma of breast (Acute) Breast lump on right side at 12 o'clock position (Acute) Adult congenital heart disease (Acute) [facility] Cardio 04/08/25 Previous section (Chronic) Tetralogy of Fallot s/p repair (Acute) Heart murmur (Acute) Varicella zoster (Acute 08/16/17) outbreak treated w/ acyclovir 5x/d , Recurrence 12/2024 Depression (Chronic) History of exposure to cat feces (Acute) (Acute) Bleeding in early (Acute) Depression affecting , (Acute) Attention deficit disorder (ADD) in adult (Acute) Medical History (Updated 07/13/25 @ 14:28 by Annia Roque) Pulmonic valve regurgitation Premature ventricular contraction Tricuspid regurgitation Cellulitis right leg with edema. one episode after a cut and one spontaneous and associated with foot pain Hypothyroidism Alopecia areata (02/01/17) Seborrheic dermatitis (02/01/17) Atopic dermatitis 11/13/23 DERM Eczema (11/30/16) Rash and nonspecific skin eruption Macular per exam ... Hx some raised areas, off/on. Shifting sleep-work schedule Works @ [employer] [facility] ED with 2nd shift work @ times Rosacea Multiple nevi Dermal nevus of cheek 05/09/[address] Yao, [facility] Derm left cheek, History of shingles Tetralogy of Fallot (11/30/16) 11/13/23 Cardiolgy Dog bite Anaphylactic reaction Unclear cause; refer to [facility] Allergy Ocular migraine x1 Adjustment disorder, unspecified (02/02/17) Surgical History (Updated 07/07/25 @ 00:04 by DIANNE HEALY) H/O tetralogy of Fallot repair (12/21/16) valve-sparing surgical repair w/ pulmonary valvotomy, infundibular resection and RVOT patch 1991 [facility] cardiac surgery for tetrology of fallot (11/10/92) [facility] section (01/10/18) SILVER. Rafi Montes. Breech s/p unsuccessful ECV. Family History (Updated 01/13/25 @ 10:55 by Yulissa Orlando CNM) Mother Diabetes Type II Essential hypertension Depression Mental disorder Depression Father Diabetes Essential hypertension CAD (coronary artery disease) Arthritis Depression Hyperlipidemia Mental disorder Depression Myopathy Atrial flutter Paternal Uncle Neoplasm Lung Brother Arthritis Social History Smoking/Tobacco Use Status: Never Smoking risk assessment performed?: Yes Alcohol Intake: current Alcohol Intake frequency: holidays/special occasions only Drug use: Never Substance use type: does not use Housing: house Number of Children: 1 current occupation: [employer] Do you feel safe at home: Yes Do you feel safe in your relationship?: Yes Female Reproductive History Menstrual Age of Menarche: 13 control method: progestin IUCD History History 4 Para 2 Hx # Term Pregnancies 2 Multiple births 0 Hx # Pregnancies 0 Ectopic pregnancies 0 AB induced 0 Hx Number of Living Children 2 AB spontaneous 1 Past Pregnancies Del. Date GA/Weeks # Preg Succ Route Wgt Sex Labor Lgth Anesth esia Location Prov Complic 01/10/18 39 No 3260.195 g Male [facility] 07/24/20 40 No vaginal 2993.71 g Male [facility] Delivery Date: 01/10/18 Last Updated by: Mishel Lr CNM failed ecv for breech. Delivery Date: 07/24/20 Last Updated by: Nichole Varghese LPN with vacuum assist due to NRFHT;
--- NOTE | 2025-07-13 11:00 | DI.CT_ITS ---
Exam(s) CT CHEST PE CTA EXAM: CT CHEST PE CTA CLINICAL HISTORY: r/o PE, L shoulder pain. TECHNIQUE: Imaging Protocol: CT angiography of the chest was performed using pulmonary embolus protocol. Multi planar reconstructions were performed. CONTRAST MATERIAL: Intravenous: Omnipaque 350 Contrast volume: 80 cc COMPARISON: No exams were available for comparison FINDINGS: CHEST: PULMONARY ARTERIES: There are no intraluminal filling defects to suggest acute pulmonary emboli. LUNGS: There are no infiltrates nor evidence of pulmonary infarction.. There are no pleural effusions. No concerning lung nodules. MEDIASTINUM: There is no hilar nor mediastinal adenopathy. CARDIAC: Sternotomy wires. Heart size is upper normal. There is no pericardial effusion.Caliber of the thoracic aorta is within normal limits. No dissection. There is no significant shift of the interventricular septum. PARTIALLY VISUALIZED UPPERMOST ABDOMEN: Partially included finding which may represent OSSEOUS: No significant osseous lesions.No fractures evident.. OTHER: Asymmetric bilateral breast masses. This patient requires dedicated breast imaging follow-up. IMPRESSION: 1. No evidence of acute pulmonary emboli. No evidence of pulmonary infarction.No pleural effusions. 2. Bilateral breast masses, right greater than left. Correlate with clinical findings. This patient requires dedicated breast imaging. 3. Probable 3rd trimester evident in the most inferior aspect of the field of view of this chest study. 4. There are small sternotomy wires most probably related to heart surgery at a young age. Preliminary virtual Radiology report was reviewed Final report called by myself to ER provider 07/13/2025 at 5:50 p.m. RADIATION DOSE DELIVERED: 54.24mGy.cm Total DLP DATA REPOSITORY: All CT scans at this facility are submitted to the National Radiology Data Registry (NRDR) Dose Index Registry (DIR) with the [employer] (ACR). RADIATION OPTIMIZATION: All CT scans at this facility use at least one of these dose optimization techniques: automated exposure control; mA and/or kV adjustment per patient size (includes targeted exams where dose is matched to clinical indication); or iterative reconstruction.
[2025-07-13 11:33] LABS: Abs Immature Grans 0.06 10^3/uL (0.0-0.06); HCT 32.5 % (36.0-46.0); HGB 10.3 g/dL (11.2-15.7); Immature Grans % 0.7 %; MCH 28.4 pg (27.0-33.0); MCHC 31.7 % (32.0-36.0); MCV 90 fL (80-95); MPV 10.9 fL (8.0-11.0); Platelet Count 304 10^3/uL (130-400); RBC 3.63 10^6/uL (3.93-5.22); RDW 14.3 % (11.7-14.6); RDW-SD 46.2 fL; WBC 8.23 10^3/uL (4.4-10.8)
[2025-07-13] MEDS: Normal Saline - Diluent 50 ML VIAL IJ (11:39)
[2025-07-13] MEDS: Omnipaque 350 MG/ML 100 ML BTL IJ (11:39)
[2025-07-13] MEDS: Normal Saline Flush 10 ML SYR IVP (11:40)
[2025-07-13 11:51] LABS: Magnesium 1.8 mg/dL (1.6-2.6)
--- NOTE | 2025-07-13 12:24 | DI.VRAD_ITS ---
PROCEDURE INFORMATION: Exam: CTA Chest With Contrast Exam date and time: 07/13/2025 11:27 AM Age: 34 years old Clinical indication: Other: R/O pe, L shoulder pain; Additional info: Patient is and consent form signed TECHNIQUE: Imaging protocol: Computed tomographic angiography of the chest with contrast. Exam focused on the arteries. 3D rendering (Not supervised by radiologist): MIP and/or 3D reconstructed images were created by the technologist. Contrast material: OMNIPAQUE 350; Contrast volume: 80 ml; Contrast route: INTRAVENOUS (IV); COMPARISON: No relevant prior studies available. FINDINGS: Pulmonary arteries: Normal. No pulmonary emboli. Aorta: Unremarkable. No aortic aneurysm. No aortic dissection. Lungs: Unremarkable. No consolidation. No masses. Pleural spaces: Unremarkable. No pneumothorax. No pleural effusion. Heart: Mild cardiomegaly. Coronary arteries: No coronary artery calcification noted. Lymph nodes: Unremarkable. No enlarged lymph nodes. Bones/joints: Unremarkable. No acute fracture. Soft tissues: Soft tissue attenuation masslike focus in the right superior breast measuring 4.4 x 3.6 x 5.0 cm (image 22/series 4, image 15/series 8). Soft tissue attenuation mass in the right inferior breast, measuring 2.9 x 3.6 x 2.8 cm (image 37/series 4, image 14/series 8), which demonstrates a small coarse central calcification. Rounded soft tissue attenuation mass in the posterior central left breast, measuring 1.4 x 1.3 x 1.6 cm (image 27/series 4, image 23/series 8). IMPRESSION: 1. No evidence of pulmonary embolism. 2. Bilateral breast masses, right greater than left, which measures soft tissue attenuation. Correlate with physical examination. Recommend prompt nonemergent mammographic correlation. Dictated and Authenticated by: Jess Sevilla MD. Orderin Sailaja Milner MD
[2025-07-13 12:35] LABS: ALT 35 U/L (10-49); AST 51 U/L (<34); Albumin 3.6 g/dL (3.2-5.0); Alkaline Phosphatase 193 U/L (46-116); Anion Gap 10.6 mmol/L (3-11); BUN 15 mg/dL (9-23); Bilirubin, Total 0.30 mg/dL (0.2-1.2); CO2 22.4 mmol/L (20.0-31.0); Calcium 9.3 mg/dL (8.3-10.6); Chloride 106 mmol/L (98-107); Glucose 82 mg/dL (74-106); Potassium 4.8 mmol/L (3.5-5.1); Sodium 139 mmol/L (136-145); Total Protein 6.1 g/dL (5.7-8.2); Troponin I < 3 ng/L (<35)
[2025-07-13] MEDS: HYDROmorphone 2 MG/ML SYR 0.5 MG IVP (12:42)
[2025-07-13] MEDS: Normal Saline 1,000 ML 1000 ML IV (12:45)
[2025-07-13 12:58] LABS: INR 1.0 (0.9-1.1); PTT Activated 27.6 sec (20.6-30.2); Prothrombin Time 10.5 sec (9.1-11.1)
[2025-07-13 13:38] LABS: Troponin I < 3 ng/L (<35)
[2025-07-13 13:55] LABS: Prot/Crea Ur Ratio 0.17 mg/mg Cr
--- NOTE | 2025-07-13 15:31 | W.OBNST ---
Date of service: 07/13/25 Time of Service: 12:00 NST Evaluation Reason for NST Reasons for Nonstress Test: OTHER, SEE COMMENT Reason for NST Other: Pt in ED for shoulder pain, NST requested for wellbeing Gestational Age Gestational Age in Weeks and Days: 36 Weeks and 4Days Test and Monitor Explained Test/Monitor Explained: Test Explained, Monitor Explained and Patient Verbalized Understanding Vital Signs Blood Pressure: 104/56 Pulse: 70 Weight: 175 lb NST Information Date on Monitor: 07/13/25 Time on Monitor: 10:00 Date off Monitor: 07/13/25 Time off Monitor: 10:40 Total Time on Monitor: 40 NST Interventions: Notify Provider Contraction Frequency: irreg BH contrx x3 during NST NST Evaluation Patient States Movement: Present FHR Baseline: 130 Variability: Moderate 6-25 bpm Accelerations: 15x15 Decelerations: None NST Results: Reactive Note Ultrasound Done: N/A. NST Note Note: SVE: cvx closed NST Reviewed and Verified by: Мария Fowler
== END 2025-07-13 14:59 | disposition home or self-care (01) ==
PROVIDERS: Emergency Provider Nurse Practitioner Family; PCP Nurse Practitioner
DX: M25.512 Pain in left shoulder (principal); Z86.79 Personal history of other diseases of the circulatory system; R60.0 Localized edema; Z3A.37 37 weeks gestation of pregnancy
CPT/HCPCS: 36415; 71275; 80053; 93005; 96361; 96374; 99285; 82565; 83735; 84156; 84484; 85025; 85610; 85730; 93010; 99284; J1171; J3490

== ENCOUNTER 2025-07-13 19:58 | Emergency (ER) | payer BC, SELFPAY ==
[2025-07-13] VITALS (18 sets, daily range): BP systolic 107–129; BP diastolic 70–80; PULSE 84–100; RESP 14–20; TEMP 36.7; O2SAT 94–97
--- NOTE | 2025-07-13 20:15 | RT.EKG_ITS ---
APPROVED REPORT Exam: Resting ECG Reason for Exam: CP Patient Location: E HR:86 bpm ECG Measurements Heart Rate 86 AXIS NE 135 P 54 QRSd 131 QRS 79 QT 379 T 28 QTc 453 Conclusion Sinus rhythm, rate 86 RBBB unchanged compared to prior No other interval abnormalities No STEMI
--- NOTE | 2025-07-13 20:30 | W.ED.GENAD ---
Discharge Plan Disposition Patient Disposition: Transfer-Acute Inpatient Care Specific Acute Inpt Facility: [facility] Condition: Stable Discharge Details Clinical Impression: Acute pain of left shoulder, Breast mass, Primary Care Provider: Consuelo Abebe ED Provider: Deborah Villa Home Meds and New Rx's Prescriptions: No Action docusate sodium [Colace] 100 mg capsule 100 mg PO DAILY DHA 200 mg capsule 200 mg PO DAILY gabapentin 100 mg capsule 100 mg PO DAILY loratadine [Claritin] 10 mg tablet 10 mg PO DAILY bupropion HCl 300 mg tablet extended release 24 hr 300 mg PO QAM Qty: 90 1RF sertraline 50 mg tablet 50 mg PO DAILY Qty: 90 1RF epinephrine [EpiPen 2-Tacos] 0.3 mg/0.3 mL auto-injector 0.3 mg IM ONCE PRN (Reason: anaphylaxis) Qty: 1 0RF Rx Instructions: as a single dose HPI General Mode of arrival: wheelchair. Date/Time Provider Initiated Documentation: 07/13/25 20:02. Limitations to Documentation: no limitations. Information obtained by: patient, family and old records reviewed. HPI Narrative: This is a 34-year-old female patient at 37 weeks gestation, G4, , with a history of tetralogy of Fallot, status postsurgical repair in childhood, history of lymphoma and breast masses, and a history of cyst requiring due to displacement of the cervix, presenting for reevaluation of recurrent chest, left axilla and shoulder blade pain. The patient was seen earlier today for this condition, please see the prior provider's note for full details of this visit. In brief, she had a reassuring cardiac workup, and a CT pulmonary embolism study and that did not show any blood clots, but did show some worsening masses in her left breast, which may certainly explain her pain. She had received Dilaudid and Tylenol to good effect, states that she went home and unfortunately had recurrence of her pain prompting her to return to care. The prior provider had discussed her case with Dr. Pastrana at [facility], who recommended if her pain was not controlled she should be transferred to [facility] for delivery and ongoing oncologic care. The patient reports that the pain is coming more in waves than it was before, she took her home gabapentin without significant improvement. The patient is not experiencing any related concerns and had a reassuring NST today, denies loss of movement, loss of fluids or vaginal bleeding, has had a few [place] contractions today. Related Data Home Medications ?Medication ?Instructions ?Recorded ?Confirmed epinephrine 0.3 mg/0.3 mL 0.3 mg (0.3 mL) IM ONCE PRN 08/22/20 07/13/25 injection, auto-injector (EpiPen anaphylaxis #1 ea 2-Tacos) loratadine 10 mg tablet (Claritin) 10 mg PO DAILY 03/06/24 07/13/25 docosahexaenoic acid 200 mg 200 mg PO DAILY 01/13/25 07/13/25 capsule ( DHA) docusate sodium 100 mg capsule 100 mg PO DAILY 01/13/25 07/13/25 (Colace) bupropion HCl 300 mg 24 hr tablet, 300 mg PO QAM #90 tabs 05/27/25 07/13/25 extended release sertraline 50 mg tablet 50 mg PO DAILY #90 tabs 05/27/25 07/13/25 gabapentin 100 mg capsule 100 mg PO DAILY 06/04/25 07/13/25 Previous Rx's ?Medication ?Instructions ?Recorded epinephrine 0.3 mg/0.3 mL 0.3 mg (0.3 mL) IM ONCE PRN 08/22/20 injection, auto-injector (EpiPen anaphylaxis #1 ea 2-Tacos) bupropion HCl 300 mg 24 hr tablet, 300 mg PO QAM #90 tabs 05/27/25 extended release sertraline 50 mg tablet 50 mg PO DAILY #90 tabs 05/27/25 Allergies Allergy/AdvReac Type Severity Reaction Status Date / Time unknown Allergy Severe Anaphylaxis Uncoded 07/13/25 20:07 cats Allergy Mild Other (See Uncoded 07/13/25 20:07 Comment) General Stated Complaint: Chest Pain MIREYA: 3 Exam Narrative Exam Narrative: Gen: Awake and alert, in no apparent distress HEENT: Non-icteric sclera Neck: Supple Lungs: No apparent respiratory distress, normal respiratory effort. CV: Appears well perfused, heart with regular rate and rhythm, strong distal pulses Abdomen: Gravid, nontender MSK: Moves 4 extremities without apparent limitation in ROM. No peripheral edema Skin: Visualized skin without rashes, cyanosis. The skin overlying the breast in the area of the left-sided pain does not show peau d'orange, redness, induration or other abnormalities. Neuro: Normal Gait, no obvious focal deficits or facial asymmetry. Speaks in full, clear sentences. Psych: Appropriate for situation. Course Vital Signs Vital signs: Vital Signs Temperature 36.7 C 07/13/25 20:01 Pulse 84 07/13/25 20:01 Respiratory Rate 18 07/13/25 20:01 Blood Pressure 111/74 07/13/25 20:01 Pulse Oximetry 97 07/13/25 20:01 Temperature 36.7 C 07/13/25 20:01 Temperature Source Oral 07/13/25 20:01 Pulse 84 07/13/25 20:01 Respiratory Rate 18 07/13/25 20:01 Blood Pressure 111/74 07/13/25 20:01 Blood Pressure Position Sitting 07/13/25 20:01 Pulse Oximetry 97 07/13/25 20:01 Oxygen Delivery Method Room Air 07/13/25 20: Oxygen Flow Rate 0 07/13/25 20:01 Pain Level 7 07/13/25 20:01 Medical Decision Making This is a 34-year-old female patient presenting for evaluation of recurrent left-sided chest, axilla, and shoulder plain in the setting of known breast masses and lymphoma as well as a high risk . My differential includes but is not limited to cancer/mass related pain, certainly considered musculoskeletal abnormalities, neurogenic pain, the patient had a robust cardiopulmonary workup and I have a lower concern for ACS, arrhythmia, pericarditis, myocarditis, cardiomyopathy, pulmonary embolism. She has no overlying skin changes concerning for infection. BP is below limits to increase my concern for preeclampsia. I did repeat an EKG, which shows a sinus rhythm with a right bundle branch block, without significant changes compared to prior and certainly no evidence of ischemia, interval abnormality or ectopy. I we will order repeat labs to include CBC, CMP, magnesium, troponin, and provide the patient with a dose of Dilaudid for ongoing pain management. However, given the progression of her breast masses, her recurrent pain, I feel that this patient warrants transfer to [facility] for expedited delivery and ongoing oncologic care. I discussed the case with Dr. Chandra of L&D who is graciously accepted this patient for transfer to L&D. She will be transported by assistant professor of marine biology for ongoing cardiopulmonary monitoring, and pain management. The results of her laboratory studies were still pending at the time of transfer The patient left our facility without incident and remained hemodynamically appropriate while under my care. Deborah Villa MD [facility] All Active Problems (Updated 07/13/25 @ 21:21 by Deborah Villa MD) Breast mass (Acute) Acute pain of left shoulder (Acute) Preeclampsia (Acute) Lactating adenoma of breast (Acute) Breast lump on right side at 12 o'clock position (Acute) Adult congenital heart disease (Acute) [facility] Cardio 04/08/25 Previous section (Chronic) Tetralogy of Fallot s/p repair (Acute) Heart murmur (Acute) Varicella zoster (Acute 08/16/17) outbreak treated w/ acyclovir 5x/d , Recurrence 12/2024 Depression (Chronic) History of exposure to cat feces (Acute) (Acute) Bleeding in early (Acute) Depression affecting , (Acute) Attention deficit disorder (ADD) in adult (Acute) Medical History (Updated 07/13/25 @ 21:21 by Deborah Villa MD) Pulmonic valve regurgitation Premature ventricular contraction Tricuspid regurgitation Cellulitis right leg with edema. one episode after a cut and one spontaneous and associated with foot pain Hypothyroidism Alopecia areata (02/01/17) Seborrheic dermatitis (02/01/17) Atopic dermatitis 11/13/23 DERM Eczema (11/30/16) Rash and nonspecific skin eruption Macular per exam ... Hx some raised areas, off/on. 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 Rosacea Multiple nevi Dermal nevus of cheek 05/09/[address] Yao, [facility] Derm left cheek, History of shingles Tetralogy of Fallot (11/30/16) 11/13/23 Cardiolgy Dog bite Anaphylactic reaction Unclear cause; refer to [facility] Allergy Ocular migraine x1 Adjustment disorder, unspecified (02/02/17) Surgical History (Updated 07/07/25 @ 00:04 by DIANNE HEALY) H/O tetralogy of Fallot repair (12/21/16) valve-sparing surgical repair w/ pulmonary valvotomy, infundibular resection and RVOT patch 1991 [facility] cardiac surgery for tetrology of fallot (11/10/92) [facility] section (01/10/18) LTCS. Rafi Montes. Breech s/p unsuccessful ECV. Family History (Updated 01/13/25 @ 10:55 by Yulissa Orlando CNM) Mother Diabetes Type II Essential hypertension Depression Mental disorder Depression Father Diabetes Essential hypertension CAD (coronary artery disease) Arthritis Depression Hyperlipidemia Mental disorder Depression Myopathy Atrial flutter Paternal Uncle Neoplasm Lung Brother Arthritis Social History Smoking/Tobacco Use Status: Never Smoking risk assessment performed?: Yes Alcohol Intake: current Alcohol Intake frequency: holidays/special occasions only Drug use: Never Substance use type: does not use Housing: house Number of Children: 1 current occupation: [employer] Do you feel safe at home: Yes Do you feel safe in your relationship?: Yes Female Reproductive History Menstrual Age of Menarche: 13 control method: progestin IUCD History History 4 Para 2 Hx # Term Pregnancies 2 Multiple births 0 Hx # Pregnancies 0 Ectopic pregnancies 0 AB induced 0 Hx Number of Living Children 2 AB spontaneous 1 Past Pregnancies Del. Date GA/Weeks # Preg Succ Route Wgt Sex Labor Lgth Anesthesia Location Prov Complic 01/10/18 39 No 3260.195 g Male [facility] c/s [facility] donaldson 07/24/20 40 No vaginal 2993.71 g Male [facility] Delivery Date: 01/10/18 Last Updated by: Mishel Lr CNM failed ecv for breech. Delivery Date: 07/24/20 Last Updated by: Nichole Varghese LPN with vacuum assist due to NRFHT;
[2025-07-13] MEDS: HYDROmorphone 2 MG/ML SYR 0.5 MG IVP (21:25)
[2025-07-13 21:38] LABS: Abs Immature Grans 0.05 10^3/uL (0.0-0.06); HCT 31.5 % (36.0-46.0); HGB 10.2 g/dL (11.2-15.7); Immature Grans % 0.6 %; MCH 29.0 pg (27.0-33.0); MCHC 32.4 % (32.0-36.0); MCV 90 fL (80-95); MPV 11.0 fL (8.0-11.0); Platelet Count 293 10^3/uL (130-400); RBC 3.52 10^6/uL (3.93-5.22); RDW 14.5 % (11.7-14.6); RDW-SD 46.3 fL; WBC 8.15 10^3/uL (4.4-10.8)
[2025-07-13 21:53] LABS: Magnesium 1.6 mg/dL (1.6-2.6)
[2025-07-13 21:55] LABS: ALT 35 U/L (10-49); AST 44 U/L (<34); Albumin 3.5 g/dL (3.2-5.0); Alkaline Phosphatase 182 U/L (46-116); Anion Gap 10.4 mmol/L (3-11); BUN 15 mg/dL (9-23); Bilirubin, Total 0.30 mg/dL (0.2-1.2); CO2 22.6 mmol/L (20.0-31.0); Calcium 8.7 mg/dL (8.3-10.6); Chloride 107 mmol/L (98-107); Glucose 112 mg/dL (74-106); Potassium 4.0 mmol/L (3.5-5.1); Sodium 140 mmol/L (136-145); Total Protein 5.8 g/dL (5.7-8.2)
[2025-07-13 21:57] LABS: Troponin I < 3 ng/L (<35)
--- NOTE | 2025-07-13 22:34 | NUR.NOTE ---
Nursing Note:Report called to Ghazala @[facility].
== END 2025-07-13 22:00 | disposition short-term general hospital (02) ==
PROVIDERS: Emergency Provider Emergency Medicine; PCP Nurse Practitioner
DX: M25.512 Pain in left shoulder (principal); Z3A.37 37 weeks gestation of pregnancy; Z86.79 Personal history of other diseases of the circulatory system; N63.20 Unspecified lump in the left breast, unspecified quadrant
CPT/HCPCS: 99285 ×2; 96374; 80053; 93005; 83735; 84484; 85025; 93010; J1171